=== PATIENT | female | born 1940 | race Caucasian/White ===

== ENCOUNTER 2017-01-21 14:31 | Emergency (ER) | payer MEDICARE, OTHER ==
[2017-01-21 16:17] VITALS: BP 136/77
--- NOTE | 2017-01-21 16:26 | UC ---
Hand/Wrist HPI - HPI Summary HPI Summary: patient fell a few days aog, has significant swelling and bruising in the hadn, mild pain in some fingers and in the palm of the hand, large bruising up the forearm - History Of Current Complaint Chief Complaint: UCGeneralIllness Stated Complaint: FELL-LT ARM INJURY Time Seen by Provider: 01/21/17 16:20 Hx Obtained From: Patient ?: No Onset/Duration: Sudden Onset, Lasting Days Severity Initially: Severe Severity Currently: Moderate Character Of Pain: Aching, Stiffness Aggravating Factor(s): Movement Alleviating: Nothing Associated Signs And Symptoms: Positive: Negative - Allergies/Home Medications Allergies/Adverse Reactions: Allergies Allergy/AdvReac Type Severity Reaction Status Date / Time No Known Allergies Allergy Verified 01/21/17 16:04 Home Medications: Home Medications B-Complex Vitamins [Vitamin B Complex] 1 tab PO 01/21/17 [History Confirmed 10/09] Cholecalciferol [Vitamin D] 1,000 unit PO 01/21/17 [History Confirmed 01/21/17] PMH/Surg Hx/FS Hx/Imm Hx Previously Healthy: Yes - Surgical History Surgical History: Yes Surgery Procedure, Year, and Place: 6 surguries to bilateral hips, including bilateral replacments - Family History Known Family History: Positive: Hypertension - Social History Alcohol Use: Daily Alcohol Amount: 1-2 glasses wine Substance Use Type: None Smoking Status (MU): Former Smoker - Immunization History Most Recent Tetanus Shot: Pt states up to date Review of Systems Constitutional: Negative Skin: Bruising Eyes: Negative ENT: Negative Respiratory: Negative Cardiovascular: Negative Gastrointestinal: Negative Genitourinary: Negative Motor: Negative Neurovascular: Negative Musculoskeletal: Decreased ROM, Edema, Myalgia Neurological: Negative Psychological: Negative All Other Systems Reviewed And Are Negative: Yes Physical Exam Triage Information Reviewed: Yes Appearance: Well-Appearing, Well-Nourished, Pain Distress Vital Signs: Initial Vital Signs Temp 98.1 F 01/21/17 16:05 Pulse 79 01/21/17 16:05 Resp 18 01/21/17 16:05 BP 136/77 01/21/17 16:05 Pulse Ox 100 01/21/17 16:05 Vital Signs Reviewed: Yes Eye Exam: Normal Eyes: Positive: Conjunctiva Clear ENT Exam: Normal ENT: Positive: Hearing grossly normal, Pharynx normal, TMs normal Dental Exam: Normal Neck exam: Normal Neck: Positive: Supple, Nontender, No Lymphadenopathy Respiratory Exam: Normal Respiratory: Positive: Chest non-tender, Lungs clear, Normal breath sounds Cardiovascular Exam: Normal Cardiovascular: Positive: RRR, No Murmur, Pulses Normal Abdominal Exam: Normal Abdomen Description: Positive: Nontender, No Organomegaly, Soft Bowel Sounds: Positive: Present Musculoskeletal: Positive: ROM Limited @ - in finger flexion, Edema @ - fingers to elbow in left hand Neurological Exam: Normal Neurological: Positive: Alert, Muscle Tone Normal Psychological Exam: Normal Skin: Positive: Other - brusing from fingers to mid forearm Hand/Wrist Course/Dx - Course Course Of Treatment: hx obtained, exam performed, meds reviewed, xray obtained negative for fracture cecelia and cock up splint applied. - Differential Dx/Diagnosis Differential Diagnosis/HQI/PQRI: Cellulitis, Contusion, Fracture, Infection, Sprain, Strain Provider Diagnoses: finger sprain. forearm strain of extensor tendons Discharge - Discharge Plan Condition: Stable Disposition: HOME Patient Education Materials: Wrist Injury (ED) Additional Instructions: 1. keep the arm elevated at rest, use the cecelia for swelling reductionand splint for comfort.
--- NOTE | 2017-01-21 16:55 | RAD ---
HISTORY: Subacute trauma, left arm injury COMPARISONS: None VIEWS: 4, Frontal, lateral, and oblique views of the left hand FINDINGS: BONE DENSITY: Normal. BONES: There is no displaced fracture. JOINTS: There is moderate to advanced osteoarthritis of the first CMC joint. There is osteoarthritis of the second and third DIP joints ALIGNMENT: There is no dislocation. SOFT TISSUES: Unremarkable. OTHER FINDINGS: None. IMPRESSION: OSTEOARTHRITIS. NO ACUTE OSSEOUS INJURY. IF SYMPTOMS PERSIST, RECOMMEND REPEAT IMAGING.
== END 2017-01-21 17:14 | disposition home or self-care (01) ==
LOC: UCEAST 14:31
DX: S63.619A Unspecified sprain of unspecified finger, initial encounter (principal); S56.512A Strain of other extensor muscle, fascia and tendon at forearm level, left arm, initial encounter; W18.30XA Fall on same level, unspecified, initial encounter; Z96.643 Presence of artificial hip joint, bilateral; Z87.891 Personal history of nicotine dependence
CPT/HCPCS: 99213; G0463

== ENCOUNTER 2018-01-08 15:53 | Inpatient (IN) | payer MEDICARE, OTHER ==
[2018-01-08 17:26] LABS: ABS Basophils 0 10^3/ul (0-0.2); ABS Eosinophils 0 10^3/ul (0-0.6); ABS Lymphocytes 1.2 10^3/ul (1.0-4.8); ABS Monocytes 0.1 10^3/ul (0-0.8); ABS Neutrophils 3.1 10^3/ul (1.5-7.7); ABS Nucleated RBC 0 10^3/ul; Eosinophil % 0.4 % (0-6); Hematocrit 49 % (35-47); Lymphocyte % 27.1 % (25-47); Mean Corpuscular HGB Conc 33 g/dl (31-36); Mean Corpuscular Hemoglobin 27 pg (27-31); Mean Corpuscular Volume 83 fL (80-97); Mean Platelet Volume 7.7 um3 (7.4-10.4); Nucleated Red Blood Cells % 0.1; Platelet Count 335 10^3/ul (150-450); Red Cell Distribution Width 18 % (10.5-15); White Blood Count 4.4 10^3/ul (3.5-10.8)
[2018-01-08] MEDS ORDERED: Ondansetron INJ* 2 MG/ML VIAL IV ONE (17:30)
[2018-01-08] MEDS ORDERED: HYDROmorphone INJ* 1 MG/ML CARPUJECT SYRINGE IV ONE (17:30)
[2018-01-08] MEDS ORDERED: HYDROmorphone INJ* 2 MG/ML CARPUJECT SYRINGE ONE (17:41)
[2018-01-08 17:46] LABS: EGFR Non-African American 54.7 (>60)
[2018-01-08] MEDS ORDERED: HYDROmorphone INJ* 2 MG/ML CARPUJECT SYRINGE IV SLOW PU ONE ×2 (17:47→20:38)
[2018-01-08] MEDS ORDERED: Iodixanol* (CONTRAST) 320 MG/ML 100 ML SDV IV ONE (18:38)
--- NOTE | 2018-01-08 18:53 | RAD ---
INDICATION: Abdominal pain. COMPARISON: There are no prior studies available for comparison. TECHNIQUE: A CT scan of the abdomen and pelvis was performed with intravenous and oral contrast following intravenous injection of 85 ml of Visipaque 312 nonionic contrast. Contiguous axial sections were obtained from the lung bases through the symphysis pubis. Images were reconstructed in the coronal and sagittal planes. FINDINGS: There is mild dependent bilateral lower lobe subsegmental atelectasis. No pleural effusion is present. The liver and spleen are normal in size. There is a small hypodense area in the posterior segment of the right hepatic lobe measuring 0.6 cm in size which is too small to characterize by CT. No calcified gallstones are seen. The pancreas appears to be within normal limits. The kidneys and adrenal glands are normal in size. No hydronephrosis is seen. No significant focal renal abnormality is seen. The abdominal aorta is tortuous and ectatic. No aneurysm is seen. There is mild calcific plaque. No significant enlarged retroperitoneal lymph nodes are seen. The stomach is mildly distended with fluid. The small bowel colon appear nondistended. The appendix is within normal limits. There is mild to moderate descending and sigmoid diverticulosis. A portion of the sigmoid colon is obscured secondary to artifact from bilateral hip replacement surgery. There is a small to moderate amount of free intraperitoneal air present in the upper anterior abdomen. A definite source is not evident. There is a small amount of ascites present within the paracolic gutters and pelvis and adjacent to the liver and spleen. The patient is status post total bilateral hip placement surgery which causes artifact limiting evaluation of the pelvis. No other significant focal osseous abnormalities are seen. The results of this exam were called to referring clinician. IMPRESSION: 1. THERE IS FREE INTRAPERITONEAL AIR CONSISTENT WITH A RUPTURED VISCUS, RECOMMEND SURGICAL CONSULTATION. 2. SMALL AMOUNT OF FREE INTRAPERITONEAL FLUID.
[2018-01-08] MEDS ORDERED: Piperacillin/Tazobac ADVAN(*) 3.375 GM in NS 0.9% 100 ML* 100 ML IVPB ONE (19:08)
--- NOTE | 2018-01-08 19:34 | ED ---
Herman Arguello Natalie, scribed for Jamal Recio MD on 01/08/18 at 1716 . Abdominal Pain/Female - HPI Summary HPI Summary: The pt is a 77 y/o F presenting to the the ED c/o low abd pain starting at 14: 30. The pt was out laura[p[ing when she had a strawberry and banana smoothie about two hours before the severe pain started in her low abd. The pain is described as switching between excrutiating and dull epsiodes. The pain is rated 10/10 in severity. The pain is aggravated by nothing and alleviated by nothing. 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 She additionally c/o nausea and vomiting. She has not had any abd surgeries in the past. - History of Current Complaint Chief Complaint: EDAbdPain Stated Complaint: ABD PAIN Time Seen by Provider: 01/08/18 16:44 Hx Obtained From: Patient Onset/Duration: Sudden Onset, Lasting Hours, Still Present Severity Initially: Severe Severity Currently: Severe Pain Intensity: 10 Pain Scale Used: 0-10 Numeric Location: Suprapubic Radiates: No Character: Sharp, Dull Aggravating Factor(s): Nothing Alleviating Factor(s): Nothing Associated Signs and Symptoms: Positive: Nausea, Vomiting Allergies/Adverse Reactions: Allergies Allergy/AdvReac Type Severity Reaction Status Date / Time midazolam [From Versed] Allergy Difficulty Verified 01/08/18 16:46 Breathing Home Medications: Home Medications Glucosamine CAP (NF) 1,000 cap PO DAILY 01/08/18 [History Confirmed 01/08/18] Metoprolol Tartrate TAB* [Lopressor TAB*] 25 mg PO BID 01/08/18 [History Confirmed 01/08/18] Vitamin B Complex TAB* [B Complex-50*] 1 tab PO DAILY 01/08/18 [History Confirmed 01/08/18] amLODIPine TAB* [Norvasc 5 mg TAB*] 5 mg PO DAILY 01/08/18 [History Confirmed ] PMH/Surg Hx/FS Hx/Imm Hx Opthamlomology History: Denies: Hx Legally Blind EENT History: Denies: Hx Deafness - Surgical History Surgery Procedure, Year, and Place: 6 surguries to bilateral hips, including bilateral replacments - Immunization History Date of Tetanus Vaccine: t Infectious Disease History: No Infectious Disease History: Reports: Hx Tuberculosis Denies: Traveled Outside the [place] in Last 30 Days - Family History Known Family History: Positive: Cardiac Disease, Hypertension, Diabetes - type II in father - Social History Alcohol Use: Daily Alcohol Amount: 1-2 glasses wine Substance Use Type: Reports: None Smoking Status (MU): Former Smoker Review of Systems Negative: Fever Positive: Abdominal Pain, Vomiting, Nausea All Other Systems Reviewed And Are Negative: Yes Physical Exam - Summary Physical Exam Summary: Appearance: The patient is well-nourished in no acute distress and in no acute pain. Skin: The skin is warm and dry and skin color reflects adequate perfusion. HEENT: The head is normocephalic and atraumatic. The pupils are equal and reactive. The conjunctivae are clear and without drainage. Nares are patent and without drainage. Mouth reveals moist mucous membranes and the throat is without erythema and exudate. The external ears are intact. The ear canals are patent and without drainage. The tympanic membranes are intact. Neck: the neck is supple with full range of motion and non-tender. There are no carotid bruits. There is no neck vein distension. Respiratory: Chest is non-tender. Lungs are clear to auscultation and breath sounds are symmetrical and equal. Cardiovascular: Heart is regular rate and rhythm. There is no murmur or rub auscultated. There is no peripheral edema and pulses are symmetrical and equal. Abdomen: The abdomen is diffusely tender with voluntary guarding. There are normal bowel sounds heard in all four quadrants and there is no organomegaly palpated. Musculoskeletal: There is no back tenderness noted. Extremities are non-tender with full range of motion. There is good capillary refill. There is no peripheral edema or calf tenderness elicited. Neurological: Patient is alert and oriented to person, place and time. The patient has symmetrical motor strength in all four extremities. Cranial nerves are grossly intact. Deep tendon reflexes are symmetrical and equal in all four extremities. Psychiatric: The patient has an appropriate affect and does not exhibit any anxiety or depression. Triage Information Reviewed: Yes Vital Signs On Initial Exam: Initial Vitals Temp Pulse Resp BP Pulse Ox 95.7 F 76 20 143/84 99 01/08/18 15:54 01/08/18 15:54 01/08/18 15:54 01/08/18 15:54 01/08/18 15:54 Vital Signs Reviewed: Yes Diagnostics - Vital Signs Vital Signs Temp Pulse Resp BP Pulse Ox 01/08/18 16:41 73 21 100 01/08/18 15:54 95.7 F 76 20 143/84 99 - Laboratory Lab Results: Lab Results 01/08/18 01/08/18 01/08/18 Range/Units 17:12 17:12 17:12 WBC 4.4 (3.5-10.8) 10^3/ul RBC 5.90 H (4.0-5.4) 10^6/ul Hgb 16.0 (12.0-16.0) g/dl Hct 49 H (35-47) % MCV 83 (80-97) fL MCH 27 (27-31) pg MCHC 33 (31-36) g/dl RDW 18 H (10.5-15) % Plt Count 335 (150-450) 10^3/ul MPV 7.7 (7.4-10.4) um3 Neut % (Auto) 70.7 (38-83) % Lymph % (Auto) 27.1 (25-47) % [place]quois % (Auto) 1.4 (0-7) % Eos % (Auto) 0.4 (0-6) % Baso % (Auto) 0.4 (0-2) % Absolute Neuts (auto) 3.1 (1.5-7.7) 10^3/ul Absolute Lymphs (auto) 1.2 (1.0-4.8) 10^3/ul Absolute Monos (auto) 0.1 (0-0.8) 10^3/ul Absolute Eos (auto) 0 (0-0.6) 10^3/ul Absolute Basos (auto) 0 (0-0.2) 10^3/ul Absolute Nucleated RBC 0 10^3/ul Nucleated RBC % 0.1 Sodium 137 L (139-145) mmol/L Potassium 3.4 L (3.5-5.0) mmol/L Chloride 100 L (101-111) mmol/L Carbon Dioxide 22 (22-32) mmol/L Anion Gap 15 H (2-11) mmol/L BUN 17 (6-24) mg/dL Creatinine 0.99 H (0.51-0.95) mg/dL Est GFR ( Amer) 70.3 (>60) Est GFR (Non-Af Amer) 54.7 (>60) BUN/Creatinine Ratio 17.2 (8-20) Glucose 216 H (70-100) mg/dL Lactic Acid 3.9 H* (0.5-2.0) mmol/L Calcium 9.5 (8.6-10.3) mg/dL Total Bilirubin 0.50 (0.2-1.0) mg/dL AST 19 (13-39) U/L ALT 18 (7-52) U/L Alkaline Phosphatase 62 (34-104) U/L C-Reactive Protein < 1.00 (< 5.00) mg/L Total Protein 6.7 (6.4-8.9) g/dL Albumin 3.9 (3.2-5.2) g/dL Globulin 2.8 (2-4) g/dL Albumin/Globulin Ratio 1.4 (1-3) Lipase 15 (11.0-82.0) U/L Result Diagrams: 01/08/18 17:12 01/08/18 17:12 Lab Statement: Any lab studies that have been ordered have been reviewed, and results considered in the medical decision making process. - CT Abd/Pel CT CT Interpretation: Positive (See Comments) - 1. There is free intraperitoneal air consistent with a ruptured viscus, recommend surgical consultation. 2. Small amount of free intraperitoneal fluid. ED physician has reviewed this report. CT Interpretation Completed By: Radiologist Abdominal Pain Fem Course/Dx - Course Course Of Treatment: Ms. Cottrell had the sudden onset of low abdominal pain which gradually spread throughout her abdomen. She vomited once but is not nauseated now. She takes ibuprofen occasionally but not regularly. She was voluntarily guarding on presentation. She had no fever and her WBCs were WNL. A CT Abd/Pelvis was obtained with IV contrast and showed free intraperitoneal air. Dr. Grant was contacted and is coming to see the patient. She got a lot of relief with a shot of dilaudid and zofran. - Diagnoses Provider Diagnoses: Free intraperitoneal air - Critical Care Time Critical Care Time: 30-74 min Discharge - Sign-Out/Discharge Documenting (check all that apply): Discharge - Discharge Plan Condition: Stable Disposition: ADMITTED TO [facility] Referrals: Adi MICHAEL,Clover Pérez [Primary Care Provider] - - Billing Disposition and Condition Condition: STABLE [place] [facility] [place] The documentation as recorded by the Herman quintana Natalie accurately reflects the service I personally performed and the decisions made by me, Jamal Recio MD.
[2018-01-08] MEDS ORDERED: NS 0.9% 1000 ML* 1,000 ML IV ONE (20:29)
[2018-01-08 20:47] LABS: INR 0.93 (0.77-1.02)
[2018-01-08] MEDS ORDERED: Bupivacaine 0.25% SDV* 30 ML ONE (22:45)
[2018-01-08] MEDS ORDERED: fentaNYL* 50 MCG/ML 2 ML VIAL (100 MCG VIAL) ONE ×2 (22:52→23:38)
[2018-01-08] MEDS ORDERED: Rocuronium* 10 MG/ML VIAL ONE (23:35)
[2018-01-09] MEDS ORDERED: EPHEDrine (Pressors)* 50 MG/ML VIAL ONE (00:15)
[2018-01-09] MEDS ORDERED: Phenylephrine IV* 40 MCG/ML 10 ML SYRINGE ONE (00:15)
[2018-01-09] MEDS ORDERED: Propofol* 10 MG/ML 20 ML BTL IV PUSH ONE (00:15)
[2018-01-09] MEDS ORDERED: Dexamethasone IV* 4 MG/ML 1 ML (4 MG) ONE (00:15)
[2018-01-09] MEDS ORDERED: Ondansetron INJ* 2 MG/ML VIAL ONE (00:15)
[2018-01-09] MEDS ORDERED: Cisatracurium* 2 MG/ML MDV 5 ML ONE (00:15)
[2018-01-09] MEDS ORDERED: Succinylcholine* 20 MG/ML 10 ML VIAL ONE (00:15)
[2018-01-09] MEDS ORDERED: Etomidate* 2 MG/ML 10 ML VIAL ONE (00:15)
[2018-01-09] MEDS ORDERED: Lidocaine 2% PF * 5 ML VIAL ONE (00:15)
[2018-01-09] MEDS ORDERED: metroNIDAZOLE IV 500 MG/100ML* 500 MG/100 ML BAG IVPB ONE (01:23)
--- NOTE | 2018-01-09 01:44 | HP ---
CC: Dr. Clover Joshi at [facility] HISTORY AND PHYSICAL: DATE OF ADMISSION: The patient is seen in the emergency room on 01/08/18. CHIEF COMPLAINT/HISTORY OF PRESENT ILLNESS: I was contacted by the emergency room to evaluate Ms. Js Cottrell a 77-year-old female, who presented to the emergency room with acute onset of diffuse abdominal pain. The patient's workup in the emergency room including labs and CT scan was suggested of perforated viscus and my service was contacted. The patient describes acute onset while shopping at approximately 2:30, was mostly in the periumbilic al and lower abdomen, it was severe, no alleviating factors. The patient . She presented to [facility] emergency room with her . The patient had accompanying nausea and vomiting, decreased appetite. No bloating. Last bowel moveme nt this morning. She is started describing obstipated. Denies any fevers or chills. The pain has b een unrelenting with no real alleviation with narcotics. She does describe being in good health leading up to the onset of symptoms today. She has had colonos copy in the past. Denies history of diverticulosis or diverticulitis. No IBD. The patient has been recently using ibuprofen for back pain, but she will have usually about 400 mg daily. PAST MEDICAL HISTORY: Aortic stenosis, status post treatment recently. The patient is currently on cardiac rehab for this. She also received valvular replacement. She otherwise doing well. She does have hypertension. PAST SURGICAL HISTORY: As described above. Chest surgery as well as bilateral hip surgery. She den ies any abdominal surgeries. MEDICATIONS: Include: 1. Norvasc. 2. Metoprolol. 3. Glucosamine. 4. Fluoxetine. ALLERGIES: She has allergy to MIDAZOLAM. SOCIAL HISTORY: Nonsmoker. Lives with her . She is retired. Did recently travel to [place], getting back 3 days ago. ADDITIONAL REVIEW OF SYSTEMS: No headache. No shortness of breath or chest pain. Abdominal complain ts as described. No dysuria, but positive back pain. No bleeding or clotting disorders. She is not on anticoagulation. PHYSICAL EXAMINATION GENERAL: Alert and oriented x3, in mild distress. VITAL SIGNS: She is afebrile, heart rate in the 80s, blood pressure 123/74, O2 sat 94%. HEAD, EARS, EYES, NOSE AND THROAT: Normocephalic and atraumatic. Sclerae anicteric. Mucous membran es are dry. NECK: No lymphadenopathy. LUNGS: Clear to auscultation at the apices. ABDOMEN: Tender. Positive voluntary guarding. Tenderness to percussion, but without rebound tender ness. This is diffuse with no discrete areas of worse response. RECTAL: Not performed. EXTREMITIES: Within normal limits. No calf tenderness. DIAGNOSTIC STUDIES/LAB DATA: The patient underwent labs, which showed white count of 4.4, reference range is 3.5 to 10.8. Metabolic panel shows low potassium of 3.4, lactic acid of 3.9. CRP is claudia l as her LFTs and lipase. Creatinine of 1. We do not have any baseline for patient. Coags within no rmal limits. CT scan performed. These images as well as the report were reviewed. It does show intraperitoneal a ir consistent with a ruptured viscus. There was free fluid above the liver and the spleen. There is no obvious diverticular disease. Bladder appeared normal. This is a non p.o. contrast study, but d id have IV contrast. IMPRESSION: Acute abdomen with concern of possible perforated ulcer given the patient's findings are similar to a chemical peritonitis of sorts along with this acute onset of symptoms. I do believe yudy medeiros would benefit from trip to the operating room and I have recommended diagnostic laparoscopy, po ssible laparotomy. We outlined differential diagnosis, which includes perforated peptic ulcer, descri bed the possibility of this being an anterior versus posterior ulceration. The differential diagnosis includes perforated small bowel or large bowel, possibility of diverticulitis, briefly talked about possibility of cancer. They agreed to go forward. We had a long discussion. I spoke also with her daughter who is a physician due to consider the possibility of transferring to [place] where they be closer to her regular doctors or at least place where she is more familiar with, but after our long d iscussion, they forewent that and decided on operation here. I discussed the risks, benefits, and alternatives. We spoke with possibility of watchful waiting ove r the course of the next few hours with idea of going to the operating room should she worsen. My in clination is that this is perforated ulcer that will worse with time causing more pain and does mariah nt an evaluation in the OR to better delineate this and diagnosed why patient has intraperitoneal air . Consent was signed by her . The patient was present during this discussion and understands these possibilities. The additional complications and possibilities include bleeding, infection, exp loratory laparotomy, partial colectomy and colostomy, the possibility of feeding tube and prolonged h ospitalization, stroke, MD and even . The patient has already received a dose of antibiotics in the emergency room. We will not give other dose at this point and patient is receiving IV fluids. PLAN: Diagnostic laparoscopy, possible laparotomy. [id number]/[facility] #: [id number]
[2018-01-09] MEDS ORDERED: Metoprolol Tartrate IV* 1 MG/ML 5 ML VIAL ONE (02:25)
[2018-01-09] MEDS ORDERED: ZOSYN 3.375 GM x ONE DOSE over 30 miuntes IVPB ×2 (04:00)
[2018-01-09] MEDS ORDERED: Metoclopramide IV* 5 MG/ML 2 ML VIAL IV PRN (05:36)
[2018-01-09] MEDS ORDERED: Morphine PCA ADULT* 5 MG/ML 30 ML PCA SCH (06:00)
[2018-01-09] MEDS ORDERED: fentaNYL* 50 MCG/ML 2 ML VIAL (100 MCG VIAL) IV SLOW PU PRN (06:44)
[2018-01-09] MEDS ORDERED: fentaNYL* 50 MCG/ML 2 ML VIAL (100 MCG VIAL) ONE (06:45)
--- NOTE | 2018-01-09 06:45 | PN ---
Progress Note - Progress Note Date of Service: 01/09/18 Note: Patient concerned about having adverse reaction to morphine. Will start fentanyl prn
[2018-01-09] MEDS: Heparin VIAL(*) 5000 UNITS/ML VIAL (FIVE THOUSAND) SUBCUT SCH ×3 (06:48→22:22)
[2018-01-09 07:41] LABS: Urine Appearance Clear; Urine Blood 2+ (Negative); Urine Color Yellow; Urine Ketones Negative (Negative); Urine Protein Negative (Negative); Urine Specific Gravity 1.032 (1.010-1.030); Urine Urobilinogen Negative (Negative)
[2018-01-09] MEDS ORDERED: Metoprolol Tartrate IV* 1 MG/ML 5 ML VIAL IV SCH (08:00)
[2018-01-09] MEDS: Piperacillin/Tazobactam 13.5 GM IV 24 hour continuous infusion IVPB SCH ×2 (08:07)
--- NOTE | 2018-01-09 08:09 | RAD ---
INDICATION: Free intraperitoneal air COMPARISON: CT of the abdomen and pelvis January 08, 2018 TECHNIQUE: Single AP portable view of the chest was obtained. FINDINGS: Image quality is compromised due to the relative inferiority of a portable chest x-ray. Postsurgical changes include sternotomy wires and a prosthetic aortic valve. There is a gastric tube with the tip terminating overlying the gastric antrum. The heart and mediastinum exhibit normal size and contour. There is density obscuring the left hemidiaphragm and causing left-sided costophrenic angle blunting. Visualized bones are normal for the patient's age. IMPRESSION: Density of securing the left hemidiaphragm and causing left costophrenic angle blunting could be pleural effusion and/or consolidation at the left lung base.
[2018-01-09] MEDS: metroNIDAZOLE IV 500 MG/100ML* 500 MG/100 ML BAG IVPB SCH ×2 (08:13→19:21)
[2018-01-09 08:17] LABS: ABS Basophils 0 10^3/ul (0-0.2); ABS Eosinophils 0 10^3/ul (0-0.6); ABS Lymphocytes 0.4 10^3/ul (1.0-4.8); ABS Monocytes 0.3 10^3/ul (0-0.8); ABS Neutrophils 3.9 10^3/ul (1.5-7.7); ABS Nucleated RBC 0 10^3/ul; Eosinophil % 0.1 % (0-6); Hematocrit 45 % (35-47); Hemoglobin 14.9 g/dl (12.0-16.0); Lymphocyte % 8.8 % (25-47); Mean Corpuscular HGB Conc 33 g/dl (31-36); Mean Corpuscular Hemoglobin 28 pg (27-31); Mean Corpuscular Volume 84 fL (80-97); Mean Platelet Volume 8.6 um3 (7.4-10.4); Nucleated Red Blood Cells % 0.1; Platelet Count 249 10^3/ul (150-450); Red Blood Count 5.42 10^6/ul (4.0-5.4); Red Cell Distribution Width 18 % (10.5-15); White Blood Count 4.6 10^3/ul (3.5-10.8)
[2018-01-09] MEDS ORDERED: HYDROmorphone PCA* 20 MG/20 ML PCA.SYRING PCA SCH (09:30)
[2018-01-09] MEDS ORDERED: Naloxone* 0.4 MG/ML 1 ML VIAL IV PUSH PRN (09:30)
[2018-01-09] MEDS ORDERED: NS 0.9% 1000 ML* 1,000 ML IVPB SCH (09:30)
[2018-01-09] MEDS ORDERED: HYDROmorphone PCA* 20 MG/20 ML PCA.SYRING ONE (09:46)
[2018-01-09] MEDS: NS 0.9% 1000 ML* 1,000 ML IV SCH ×3 (10:04→20:03)
[2018-01-09] MEDS ORDERED: Magnesium Sulfate 2 GM IV* 2 GM/50 ML BAG IVPB ONE (11:43)
[2018-01-09] MEDS ORDERED: Metoprolol Tartrate IV* 1 MG/ML 5 ML VIAL IV PRN (11:49)
--- NOTE | 2018-01-09 13:27 | PN ---
Progress Note - Progress Note Date of Service: 01/09/18 SOAP: Subjective: Pt seen and examined. OOB to chair. thirsty , no nausea Objective: af tachy, normotensive. O2 sat 99 on face mask UO good NT minimal thick lungs clear abdo: soft/ distented, tender ostomy intact, no gas dressing intact labs noted Assessment: POD0 Jose Roberto's Plan: bolus cont NGT, paz fopr now Labs in am pain control ICU for 1 more night
[2018-01-09] MEDS ORDERED: Magnesium Sulfate 1 GM IV* 1 GM/100 ML BAG IV ONE (13:29)
[2018-01-09] MEDS ORDERED: NS 0.9% 1000 ML* 1,000 ML IV ONE (13:30)
--- NOTE | 2018-01-09 15:15 | CONS ---
CONSULTATION REPORT: [facility] DATE OF CONSULT: 01/09/2018 ATTENDING PHYSICIAN: Jesus Grant MD HISTORY OF PRESENT ILLNESS: This is a very pleasant 77-year-old female patient who presented to the emergency department last night for evaluation of acute diffuse abdominal pain, sharp in nature. Patient stated the pain was increasing and she also had some nausea with vomiting and persistent anorexia. The patient stated she did have a bowel movement in the morning which was reported as normal. However, upon evaluation in the emergency department, a CAT scan was performed, this was evaluated by Dr. Grant. CAT scan results show intraperitoneal air consistent with a ruptured viscus. There was free fluid in the abdomen above the liver and the spleen. There was no obvious diverticular disease, bladder appeared normal. Of significant note, the CT scan was performed with IV contrast only and no p.o. contrast. Dr. Grant determined it was necessary to take the patient to the OR. She was presenting with an acute abdomen. She was going for diagnostic laparoscopy with possible laparotomy. The patient was seen in the ICU status post her procedure. Her was at the bedside. She is lying in bed with simple oxygen mask on. PAST MEDICAL HISTORY: Significant for aortic stenosis status post valve replacement, hypertension and depression. PAST SURGICAL HISTORY: Significant for aortic valve replacement in 08/29/17. MEDICATIONS: At home include: 1. Glucosamine 1000 mg one tablet daily. 2. Prozac 40 mg daily. 3. Amlodipine 5 mg daily. 4. Metoprolol tartrate 25 mg two times a day. 5. Vitamin B complex one tablet daily. ALLERGIES: She has allergy to MIDAZOLAM. I clarified this with her . He said it was not a rash or wheezing, when she had MIDAZOLAM, she was having closed reduction procedure done and patient had reduced respiratory status when she had two doses of MIDAZOLAM but no overt rash or itching. FAMILY HISTORY: Noncontributory. SOCIAL HISTORY: The patient denies smoking, denies alcohol use and denies any illicit drug use. She is retired and lives at home with her . PHYSICAL EXAM: She is alert but sometimes drowsy secondary to narcotic pain medication but in no obvious distress. She is well appearing. Vital Signs: Blood pressure 94/65, heart rate 90, respiratory rate 21, oxygen saturation is 96% to 97% on 6 L simple mask. HEENT: Patient is atraumatic normocephalic. She is PERRLA with nonicteric sclerae. Neck is supple, nontender. No JVD noted , no thyromegaly appreciated. No carotid bruits auscultated. Cardiovascular: S1, S2 are present. Rate and rhythm are regular. No murmurs, gallops or rubs noted. Abdomen is soft, moderately tender, diffuse across her abdomen. She has absent bowel sounds at this time. There is a colostomy bag that is draining a small amount of soft brown fecal matter. : She has a Raza catheter draining clear yellow urine. Musculoskeletal: There is no clubbing and no cyanosis. She has gross motor and sensation intact. She has +2 distal pulses palpable. No clubbing or edema noted. Neurologic: She is sleepy but appropriate with no focal deficits. Psychiatric: She is cooperative and appropriate. DIAGNOSTIC STUDIES/LAB DATA: WBC is 4.6, RBC is 5.42, hemoglobin 14.9, hematocrit 45, MCV 84, MCH 28, platelets 249. Sodium 136, potassium 4.3, chloride 107, CO2 is 21, BUN 16, creatinine 0.78, GFR 72.0. Glucose is 186, lactic acid is beginning to trend down, it was 3.9 on admission and is now 3.5 today, calcium 7.8, phosphorus 4.5, magnesium 1.4. Bilirubin 0.50, AST 19, ALT 18, alk phos 62. CRP is less than 1.00. Total protein is 6.7, albumin is 3.9, globulin 2.8 and lipase is 15. CAT scan as noted. IMPRESSION: This is a 77-year-old female patient with an acute abdomen status post laparotomy and colostomy. She is postop day #0. PLAN/RECOMMENDATIONS: The patient was admitted to surgical service. She is remaining in the ICU for closer management. 1. For her abdominal pain and recent surgery, plan of care will be as per the surgical service. She is currently on Dilaudid [employer]. She is n.p.o. until return of bowel function. She has a nasogastric tube to the right naris which is draining bilious material to intermittent suction that will also be maintained by surgery. 2. For her low magnesium, I have ordered 2 g of magnesium sulfate, we will recheck her labs and lytes in the morning. 3. For history of aortic stenosis with valve replacement, the patient is not on anticoagulation. Her EKG at admission was normal and patient has had no chest pain and does not appear to be fluid overloaded. She will remain on telemetry for the duration of her stay. 4. For her history of depression and PTSD, we will continue her fluoxetine caps when she is no longer n.p.o. 5. Also of note, she had some hyperglycemia postoperatively. She does not report any history of diabetes, this may be stress induced. At this point, we will keep an eye on it. I do not want to put her on insulin sliding scale while she is n.p.o. If sugars begin to creep up, we can put her on lispro sliding scale, but for now, we will just continue to monitor. The rest of the patient's course will be determined by further diagnostics, laboratories, and any other input from other providers as warranted during this admission. We thank you very kindly for the courtesy of this consult and we agree to follow the patient along with you. CECIL SANTANA, HAROON [id number]/CPS #: [id number] ALEXANDREA
[2018-01-10] MEDS: metroNIDAZOLE IV 500 MG/100ML* 500 MG/100 ML BAG IVPB SCH ×3 (03:27→17:57)
[2018-01-10 05:44] LABS: ABS Basophils 0 10^3/ul (0-0.2); ABS Eosinophils 0 10^3/ul (0-0.6); ABS Lymphocytes 0.6 10^3/ul (1.0-4.8); ABS Monocytes 0.3 10^3/ul (0-0.8); ABS Neutrophils 11.5 10^3/ul (1.5-7.7); ABS Nucleated RBC 0 10^3/ul; Eosinophil % 0 % (0-6); Hematocrit 40 % (35-47); Lymphocyte % 4.5 % (25-47); Mean Corpuscular HGB Conc 33 g/dl (31-36); Mean Corpuscular Hemoglobin 27 pg (27-31); Mean Corpuscular Volume 83 fL (80-97); Mean Platelet Volume 8.1 um3 (7.4-10.4); Nucleated Red Blood Cells % 0.1; Platelet Count 201 10^3/ul (150-450); Red Blood Count 4.77 10^6/ul (4.0-5.4); Red Cell Distribution Width 18 % (10.5-15); White Blood Count 12.4 10^3/ul (3.5-10.8)
[2018-01-10 06:02] LABS: EGFR Non-African American 74.2 (>60)
[2018-01-10] MEDS: Heparin VIAL(*) 5000 UNITS/ML VIAL (FIVE THOUSAND) SUBCUT SCH ×3 (06:33→22:43)
[2018-01-10] MEDS: Piperacillin/Tazobactam 13.5 GM IV 24 hour continuous infusion IVPB SCH ×2 (08:23)
[2018-01-10] MEDS: Pantoprazole IV* 40 MG IV SCH (08:25)
--- NOTE | 2018-01-10 08:40 | PN ---
Progress Note - Progress Note Date of Service: 01/10/18 SOAP: Subjective: Pt seen and examined. OOB to chair. Continued abdo pain NGT is bothersome Objective: af tachycardic UO good NT output reviewed abdo: soft/ distented, tender at lower abdo ostomy intact, no gas, pos. edema dressingremoved and midline wound probed labs noted Assessment: POD1 Jose Roberto's Plan: d/c NGT, paz Labs in am pain control NPO transfer to floor ostomy teaching
--- NOTE | 2018-01-10 10:40 | PN ---
Subjective Date of Service: 01/10/18 Interval History: Patient reports she is feeling better today. Denies any pain at rest but reports "tenderness" with movement. No noted gas/stool through colostomy. No fever or chills. No N/V. Denies SOB/CP. Objective Active Medications: Fentanyl Citrate (Fentanyl*) 50 mcg IV SLOW PU Q4H PRN PRN Reason: PAIN Last Admin: 01/09/18 06:48 Dose: 50 mcg Heparin Sodium (Porcine) (Heparin Vial(*)) 5,000 units SUBCUT Q8HR [facility] Last Admin: 01/10/18 06:33 Dose: 5,000 units Metronidazole/Sodium Chloride (Flagyl 500 Mg Ivpb*) 500 mg in 100 mls @ 100 mls /hr IVPB Q8H [facility] Last Admin: 01/10/18 10:30 Dose: 100 mls/hr Piperacillin Sod/Tazobactam (Sod 13.5 gm/ Sodium Chloride) 500 mls @ 20.833 mls /hr IVPB Q24H [facility] Last Admin: 01/10/18 08:23 Dose: 20.833 mls/hr Hydromorphone HCl (Dilaudid Acid Extractor*) 20 mg in 20 mls @ 0 mls/hr HEAD TENNIS PROFESSIONAL .Q24H [facility]; Per Protocol PRN Reason: Protocol Sodium Chloride (Ns 0.9% 1000 Ml*) 1,000 mls @ 0 mls/hr IVPB .Q24H [facility] PRN Reason: KVO Last Admin: 01/09/18 14:06 Dose: 15 mls/hr Metoclopramide HCl (Reglan Iv*) 10 mg IV Q6H PRN PRN Reason: NAUSEA Last Admin: 01/10/18 03:38 Dose: 10 mg Metoprolol Tartrate (Lopressor Iv*) 5 mg IV Q6H PRN PRN Reason: hypertension Naloxone HCl (Narcan*) 0.08 mg IV PUSH Q2M PRN PRN Reason: SEDATION Pantoprazole Sodium (Protonix Iv*) 40 mg IV DAILY [facility] Last Admin: 01/10/18 08:25 Dose: 40 mg Vital Signs - 8 hr 01/10/18 01/10/18 01/10/18 03:00 03:01 03:30 Temperature Pulse Rate 108 104 110 Respiratory 22 21 24 Rate Blood Pressure 130/79 155/82 (mmHg) O2 Sat by Pulse 97 98 96 Oximetry 01/10/18 01/10/18 01/10/18 04:00 04:30 05:00 Temperature 98.3 F Pulse Rate 98 106 106 Respiratory 20 20 23 Rate Blood Pressure 137/81 139/85 (mmHg) O2 Sat by Pulse 98 98 96 Oximetry 01/10/18 01/10/18 01/10/18 05:30 06:00 06:30 Temperature Pulse Rate 96 105 102 Respiratory 20 22 19 Rate Blood Pressure 130/81 142/82 130/81 (mmHg) O2 Sat by Pulse 98 98 98 Oximetry 01/10/18 01/10/18 01/10/18 07:00 07:30 08:00 Temperature 97.9 F Pulse Rate 102 106 103 Respiratory 21 20 20 Rate Blood Pressure 136/89 144/81 (mmHg) O2 Sat by Pulse 97 91 91 Oximetry 01/10/18 01/10/18 01/10/18 08:01 08:30 09:00 Temperature Pulse Rate 102 103 96 Respiratory 19 21 21 Rate Blood Pressure 122/81 130/82 116/65 (mmHg) O2 Sat by Pulse 91 92 93 Oximetry 01/10/18 01/10/18 01/10/18 09:30 10:00 10:01 Temperature Pulse Rate 103 103 102 Respiratory 21 25 17 Rate Blood Pressure 123/65 124/70 (mmHg) O2 Sat by Pulse 92 92 95 Oximetry Oxygen Devices in Use Now: None Appearance: well developed 77 yo female sitting up in a chair in NAD. A+O x3 Eyes: No Scleral Icterus, PERRLA Ears/Nose/Mouth/Throat: NL Teeth, Lips, Gums, Mucous Membranes Moist Neck: NL Appearance and Movements; NL JVP Respiratory: Symmetrical Chest Expansion and Respiratory Effort, Clear to Auscultation Cardiovascular: NL Sounds; No Murmurs; No JVD, RRR, No Edema Abdominal: - - No BS. Colostomy in LLQ, beefy red stoma - small amount of noted dark red drainage noted Extremities: No Edema, No Clubbing, Cyanosis Skin: No Rash or Ulcers, No Nodules or Sclerosis Neurological: Alert and Oriented x 3, NL Sensation, NL Muscle Strength and Tone Lines/Tubes/Other Access: Clean, Dry and Intact Peripheral IV Nutrition: Taking PO's Result Diagrams: 01/10/18 05:05 01/10/18 05:05 Additional Lab and Data: Lab Results 01/08/18 01/08/18 01/08/18 Range/Units 17:12 17:12 17:12 WBC 4.4 (3.5-10.8) 10^3/ul RBC 5.90 H (4.0-5.4) 10^6/ul Hgb 16.0 (12.0-16.0) g/dl Hct 49 H (35-47) % MCV 83 (80-97) fL MCH 27 (27-31) pg MCHC 33 (31-36) g/dl RDW 18 H (10.5-15) % Plt Count 335 (150-450) 10^3/ul MPV 7.7 (7.4-10.4) um3 Neut % (Auto) 70.7 (38-83) % Lymph % (Auto) 27.1 (25-47) % [place] % (Auto) 1.4 (0-7) % Eos % (Auto) 0.4 (0-6) % Baso % (Auto) 0.4 (0-2) % Absolute Neuts (auto) 3.1 (1.5-7.7) 10^3/ul Absolute Lymphs (auto) 1.2 (1.0-4.8) 10^3/ul Absolute Monos (auto) 0.1 (0-0.8) 10^3/ul Absolute Eos (auto) 0 (0-0.6) 10^3/ul Absolute Basos (auto) 0 (0-0.2) 10^3/ul Absolute Nucleated RBC 0 10^3/ul Nucleated RBC % 0.1 Sodium 137 L (139-145) mmol/L Potassium 3.4 L (3.5-5.0) mmol/L Chloride 100 L (101-111) mmol/L Carbon Dioxide 22 (22-32) mmol/L Anion Gap 15 H (2-11) mmol/L BUN 17 (6-24) mg/dL Creatinine 0.99 H (0.51-0.95) mg/dL Est GFR ( Amer) 70.3 (>60) Est GFR (Non-Af Amer) 54.7 (>60) BUN/Creatinine Ratio 17.2 (8-20) Glucose 216 H (70-100) mg/dL Lactic Acid 3.9 H* (0.5-2.0) mmol/L Calcium 9.5 (8.6-10.3) mg/dL Total Bilirubin 0.50 (0.2-1.0) mg/dL AST 19 (13-39) U/L ALT 18 (7-52) U/L Alkaline Phosphatase 62 (34-104) U/L C-Reactive Protein < 1.00 (< 5.00) mg/L Total Protein 6.7 (6.4-8.9) g/dL Albumin 3.9 (3.2-5.2) g/dL Globulin 2.8 (2-4) g/dL Albumin/Globulin Ratio 1.4 (1-3) Lipase 15 (11.0-82.0) U/L Microbiology and Other Data: Microbiology 01/09/18 06:49 Urine Culture - Final Urine No Growth (<1,000 CFU/mL) 01/09/18 06:49 Nasal Screen MRSA (PCR)([facility]) - Final Nasal Mrsa Not Detected Assess/Plan/Problems-Billing Assessment: 77 yo female with PMH of aortic stenosis s/p valve replacement, hypertension and depression who presented to the emergency department on 01/08 with c/o abdominal pain and was to have an acute abdomen with a bowel perforation requiring emergent OR which resulted in a colostomy. - Patient Problems (1) Sepsis Comment: - secondary to bowel perf. - new leukocytosis today (mild), no fevers, continues to be mildly tachycardiac. Elevated lactic acid yesterday - in the setting of post-op surgery - plan to recheck lactic now, send blood cx (was not done on admission d /t emergent nature of presentation). Continue IVFs, antibiotics. She is stable and improving at this time. (2) Status post Jose Roberto procedure Comment: - POD 1 - doing well - LLQ colostomy - teaching per nursing staff - Managed by the Surgical Team - GOLDY and jackson RODRIGUEZ today - Continue Zosyn/Flagyl - Pain management with HEAD TENNIS PROFESSIONAL (3) Aortic stenosis Comment: - s/p valve repair in August, not on anticoagulation (4) Electrolyte abnormality Comment: - Resolved with replacement. Continue to monitor. (5) Hypertension Comment: - Hold norvasc and Metoprolol until able to take PO. - Blood pressure wnls. continue to monitor. (6) Depression Comment: - hx of PTSD/Depression - stable - continue Prozac once taking PO (7) DVT prophylaxis Comment: HSQ (8) Full code status Status and Disposition: inpatient. Dispo per surgery. [facility]
[2018-01-10] MEDS ORDERED: NS 0.9% 1000 ML* 1,000 ML IV SCH (15:00)
[2018-01-11] MEDS: metroNIDAZOLE IV 500 MG/100ML* 500 MG/100 ML BAG IVPB SCH ×3 (01:37→18:13)
[2018-01-11 05:29] LABS: ABS Basophils 0 10^3/ul (0-0.2); ABS Eosinophils 0 10^3/ul (0-0.6); ABS Lymphocytes 1.1 10^3/ul (1.0-4.8); ABS Monocytes 0.3 10^3/ul (0-0.8); ABS Neutrophils 11.9 10^3/ul (1.5-7.7); ABS Nucleated RBC 0 10^3/ul; Eosinophil % 0.1 % (0-6); Hematocrit 33 % (35-47); Mean Corpuscular HGB Conc 33 g/dl (31-36); Mean Corpuscular Hemoglobin 27 pg (27-31); Mean Corpuscular Volume 82 fL (80-97); Mean Platelet Volume 8.3 um3 (7.4-10.4); Nucleated Red Blood Cells % 0; Platelet Count 188 10^3/ul (150-450); Red Blood Count 4.08 10^6/ul (4.0-5.4); Red Cell Distribution Width 18 % (10.5-15); White Blood Count 13.2 10^3/ul (3.5-10.8)
[2018-01-11 05:44] LABS: EGFR Non-African American 97.5 (>60)
[2018-01-11] MEDS: Heparin VIAL(*) 5000 UNITS/ML VIAL (FIVE THOUSAND) SUBCUT SCH ×3 (06:31→21:16)
[2018-01-11] MEDS: Piperacillin/Tazobactam 13.5 GM IV 24 hour continuous infusion IVPB SCH ×2 (07:52)
[2018-01-11] MEDS: Pantoprazole IV* 40 MG IV SCH (07:55)
[2018-01-11] MEDS ORDERED: Potassium Chloride IV* 40 MEQ in NS 0.9% 250 ML* 250 ML IVPB ONE (08:00)
[2018-01-11] MEDS ORDERED: KCL 20 MEQ/100 ML IVPREMIX* 20 MEQ/100 ML BAG IV SCH (08:00)
--- NOTE | 2018-01-11 08:05 | PN ---
Progress Note - Progress Note Date of Service: 01/11/18 Note: Surgery Ms. Cottrell reports she feels thirsty and thinks she might be "a little woozy" from not eating. She has been urinating without the paz and getting to the bathroom with assistance. Vital Signs 01/10/18 01/10/18 01/10/18 08:30 09:00 09:30 Temperature Pulse Rate 103 96 103 Respiratory 21 21 21 Rate Blood Pressure 130/82 116/65 123/65 (mmHg) O2 Sat by Pulse 92 93 92 Oximetry 01/10/18 01/10/18 01/10/18 10:00 10:01 10:30 Temperature Pulse Rate 103 102 103 Respiratory 25 17 21 Rate Blood Pressure 124/70 115/68 (mmHg) O2 Sat by Pulse 92 95 93 Oximetry 01/10/18 01/10/18 01/10/18 11:00 11:01 11:07 Temperature Pulse Rate 107 101 Respiratory 17 18 19 Rate Blood Pressure 122/78 (mmHg) O2 Sat by Pulse 93 94 Oximetry 01/10/18 01/10/18 01/10/18 11:31 12:03 12:29 Temperature 98.5 F Pulse Rate 99 107 Respiratory 16 18 16 Rate Blood Pressure 126/68 128/71 (mmHg) O2 Sat by Pulse 94 94 Oximetry 01/10/18 01/10/18 01/10/18 12:34 12:36 13:00 Temperature 98.5 F Pulse Rate 107 Respiratory 18 18 16 Rate Blood Pressure 128/71 (mmHg) O2 Sat by Pulse 94 94 95 Oximetry 01/10/18 01/10/18 01/10/18 14:00 15:00 15:17 Temperature 98.5 F Pulse Rate 106 Respiratory 18 18 16 Rate Blood Pressure 124/71 (mmHg) O2 Sat by Pulse 93 95 93 Oximetry 01/10/18 01/10/18 01/10/18 16:00 17:00 18:00 Temperature Pulse Rate Respiratory 16 18 18 Rate Blood Pressure (mmHg) O2 Sat by Pulse 93 95 94 Oximetry 01/10/18 01/10/18 01/10/18 19:00 19:40 19:49 Temperature 98.6 F Pulse Rate 101 Respiratory 20 20 16 Rate Blood Pressure 140/73 (mmHg) O2 Sat by Pulse 97 99 Oximetry 01/10/18 01/10/18 01/10/18 19:59 21:00 22:00 Temperature Pulse Rate Respiratory 20 18 16 Rate Blood Pressure (mmHg) O2 Sat by Pulse 96 95 95 Oximetry 01/10/18 01/10/18 01/11/18 23:00 23:15 00:00 Temperature 98.4 F Pulse Rate 91 Respiratory 18 16 16 Rate Blood Pressure 142/77 (mmHg) O2 Sat by Pulse 94 96 94 Oximetry 01/11/18 01/11/18 01/11/18 01:00 02:00 03:00 Temperature Pulse Rate Respiratory 16 16 16 Rate Blood Pressure (mmHg) O2 Sat by Pulse 96 93 93 Oximetry 01/11/18 01/11/18 01/11/18 03:27 04:00 05:00 Temperature 99.0 F Pulse Rate 99 Respiratory 16 16 16 Rate Blood Pressure 144/81 (mmHg) O2 Sat by Pulse 96 94 94 Oximetry 01/11/18 06:34 Temperature Pulse Rate Respiratory 16 Rate Blood Pressure (mmHg) O2 Sat by Pulse 93 Oximetry Abd: occ BS, protruberant, soft, non-tender Incision: clean and dry ostomy: viable, edematous Intake & Output 01/10/18 01/11/18 01/11/18 22:59 06:59 14:59 Intake Total 0 1061 Output Total 350 450 Balance -350 611 Weight 154 lb 11.2 oz Intake: IV Fluids 1061 ABX - FLAGYL 205 NS (0.9%) 856 Oral 0 0 Output: Urine 350 450 Laboratory Results - last 24 hr 01/10/18 01/11/18 01/11/18 11:05 04:57 04:57 WBC 13.2 H RBC 4.08 Hgb 11.0 L Hct 33 L MCV 82 MCH 27 MCHC 33 RDW 18 H Plt Count 188 MPV 8.3 Neut % (Auto) 89.8 H Lymph % (Auto) 8.0 L [place] % (Auto) 2.0 Eos % (Auto) 0.1 Baso % (Auto) 0.1 Absolute Neuts (auto) 11.9 H Absolute Lymphs (auto) 1.1 Absolute Monos (auto) 0.3 Absolute Eos (auto) 0 Absolute Basos (auto) 0 Absolute Nucleated RBC 0 Nucleated RBC % 0 Sodium 140 Potassium 3.2 L Chloride 112 H Carbon Dioxide 21 L Anion Gap 7 BUN 13 Creatinine 0.60 Est GFR ( Amer) 125.3 Est GFR (Non-Af Amer) 97.5 BUN/Creatinine Ratio 21.7 H Glucose 88 Lactic Acid 1.5 Calcium 7.9 L Phosphorus 1.5 L Magnesium 1.9 Total Bilirubin 0.50 AST 15 ALT 12 Alkaline Phosphatase 47 Total Protein 4.9 L Albumin 2.7 L Globulin 2.2 Albumin/Globulin Ratio 1.2 A/P: POD#3 Making progress. Will start clear liquids, replete potassium and phosphorus, change IVF to D51/2 NSS with potassium. Will re-check labs in AM. CLFoster
[2018-01-11] MEDS ORDERED: Potassium Phosphate IV* 15 MMOLE in NS 0.9% 250 ML* 250 ML IVPB ONE (09:00)
[2018-01-11] MEDS ORDERED: Ondansetron INJ* 2 MG/ML VIAL ONE (13:45)
[2018-01-11] MEDS: D5W 1/2 NS 40 Meq KCL 1000 ML* 1,000 ML IV SCH (13:52)
--- NOTE | 2018-01-11 14:40 | PN ---
Subjective Date of Service: 01/11/18 Interval History: Patient complains of fatigue and abdominal pain at incision with movement. Patient complains of mild nausea but is tolerating fluids. Patient feels weak but has no muscle aches. Patient denies F/C, vomiting, issues with colostomy, headache, dysuria, chest pain, SOB, or other pain. Patient somewhat anxious about condition and condition was discussed at length with patient and daughter. Family History: Unchanged from Admission Social History: Unchanged from Admission Past Medical History: Unchanged from Admission Objective Active Medications: Fentanyl Citrate (Fentanyl*) 50 mcg IV SLOW PU Q4H PRN PRN Reason: PAIN Last Admin: 01/09/18 06:48 Dose: 50 mcg Fluoxetine HCl (Prozac Cap*) 40 mg PO DAILY [facility] Heparin Sodium (Porcine) (Heparin Vial(*)) 5,000 units SUBCUT Q8HR [facility] Last Admin: 01/11/18 13:50 Dose: 5,000 units Metronidazole/Sodium Chloride (Flagyl 500 Mg Ivpb*) 500 mg in 100 mls @ 100 mls /hr IVPB Q8H [facility] Last Admin: 01/11/18 10:01 Dose: 100 mls/hr Piperacillin Sod/Tazobactam (Sod 13.5 gm/ Sodium Chloride) 500 mls @ 20.833 mls /hr IVPB Q24H [facility] Last Admin: 01/11/18 07:52 Dose: 20.833 mls/hr Hydromorphone HCl (Dilaudid Promotion Producer*) 20 mg in 20 mls @ 0 mls/hr SEMICONDUCTOR ENGINEER .Q24H [facility]; Per Protocol PRN Reason: Protocol Sodium Chloride (Ns 0.9% 1000 Ml*) 1,000 mls @ 0 mls/hr IVPB .Q24H [facility] PRN Reason: KVO Last Admin: 01/09/18 14:06 Dose: 15 mls/hr Potassium Chloride/Dextrose (D5w 1/2 Ns 40 Meq Kcl 1000 Ml*) 1,000 mls @ 75 mls /hr IV PER RATE [facility] Last Admin: 01/11/18 13:52 Dose: 75 mls/hr Potassium Phosphate 15 mmole/ (Sodium Chloride) 255 mls @ 42 mls/hr IVPB ONCE ONE Stop: 01/11/18 15:04 Last Admin: 01/11/18 08:59 Dose: 42 mls/hr Metoprolol Tartrate (Lopressor Iv*) 5 mg IV Q6H PRN PRN Reason: hypertension Naloxone HCl (Narcan*) 0.08 mg IV PUSH Q2M PRN PRN Reason: SEDATION Ondansetron HCl (Zofran Inj*) 4 mg IV Q4H PRN PRN Reason: NAUSEA Pantoprazole Sodium (Protonix Iv*) 40 mg IV DAILY [facility] Last Admin: 01/11/18 07:55 Dose: 40 mg Vital Signs - 8 hr 01/11/18 01/11/18 01/11/18 07:00 08:00 08:14 Temperature 97.9 F Pulse Rate 81 Respiratory 16 16 16 Rate Blood Pressure 146/75 (mmHg) O2 Sat by Pulse 94 93 97 Oximetry 01/11/18 01/11/18 01/11/18 09:00 10:00 10:08 Temperature Pulse Rate Respiratory 16 16 16 Rate Blood Pressure (mmHg) O2 Sat by Pulse 93 91 94 Oximetry 01/11/18 01/11/18 11:39 12:08 Temperature 98.4 F Pulse Rate 80 Respiratory 16 16 Rate Blood Pressure 139/74 (mmHg) O2 Sat by Pulse 96 96 Oximetry Oxygen Devices in Use Now: Nasal Cannula Appearance: Patient is a 77yo female who appears stated age and is sitting in the chair in NAD. Eyes: No Scleral Icterus, PERRLA Ears/Nose/Mouth/Throat: NL Teeth, Lips, Gums, Clear Oropharnyx, Mucous Membranes Moist Neck: NL Appearance and Movements; NL JVP, Trachea Midline Respiratory: Symmetrical Chest Expansion and Respiratory Effort, Clear to Auscultation Cardiovascular: RRR, No Edema, - - Grade 3/6 harsh murmur heard best at RUSB. Abdominal: - - Tender to palpation throughout without guarding or rigidity. No signs of inflammation around colostomy, Incision healing well. Lymphatic: No Cervical Adenopathy Extremities: No Edema Skin: No Rash or Ulcers, No Nodules or Sclerosis Neurological: Alert and Oriented x 3, NL Sensation, NL Gait, NL Muscle Strength and Tone, - - CN II-XII intact. Result Diagrams: 01/11/18 04:57 01/11/18 04:57 Additional Lab and Data: Lab Results Microbiology and Other Data: Microbiology 01/09/18 06:49 Urine Culture - Final Urine No Growth (<1,000 CFU/mL) 01/09/18 06:49 Nasal Screen MRSA (PCR)([facility]) - Final Nasal Mrsa Not Detected Assess/Plan/Problems-Billing Assessment: 77 yo female with PMH of aortic stenosis s/p valve replacement, hypertension and depression who presented to the emergency department on 01/08 with c/o abdominal pain and was to have an acute abdomen with a bowel perforation requiring emergent OR which resulted in a colostomy. - Patient Problems (1) Sepsis Current Visit: Yes Status: Acute Comment: Secondary to bowel perf, resolved. New leukocytosis, no fevers or tachycardia. No growth on blood cultures, Lactic normal, Continue antibiotics, Stable and improving, does not likely represent recurrent infection. (2) Status post Jose Roberto procedure Current Visit: Yes Status: Acute Code(s): Z93.3 - COLOSTOMY STATUS SNOMED Code(s): 686347538 Comment: POD 2 - doing well LLQ colostomy - teaching per nursing staff Managed by the Surgical Team Continue Zosyn/Flagyl Pain management with SEMICONDUCTOR ENGINEER Taking in PO fluids with mild nausea. (3) Aortic stenosis Current Visit: Yes Status: Acute Code(s): I35.0 - NONRHEUMATIC AORTIC (VALVE ) STENOSIS SNOMED Code(s): 92320006 Comment: s/p valve repair in August, not on anticoagulation No signs of Valve failure or CHF. (4) Depression Current Visit: Yes Status: Acute Code(s): F32.9 - MAJOR DEPRESSIVE DISORDER , SINGLE EPISODE, UNSPECIFIED SNOMED Code(s): 22964235 Comment: Hx of PTSD/Depression. Anxious about condition Continue Prozac once taking PO consistently. (5) Electrolyte abnormality Current Visit: Yes Status: Acute Code(s): E87.8 - OTH DISORDERS OF ELECTROLYTE AND FLUID BALANCE, NEC SNOMED Code(s): 928299998 Comment: Hypokalemic and Hypophosphatemic today. Replaced, will monitor. (6) Hypertension Current Visit: Yes Status: Acute Code(s): I10 - ESSENTIAL (PRIMARY) HYPERTENSION SNOMED Code(s): 93730302 Comment: Hold norvasc, resume metoprolol. Blood pressure slightly elevated. Continue to monitor. (7) DVT prophylaxis Current Visit: Yes Status: Acute Code(s): YCA5129 - SNOMED Code(s): 147056820 Comment: HSQ (8) Full code status Current Visit: Yes Status: Acute Code(s): Z78.9 - OTHER SPECIFIED HEALTH STATUS SNOMED Code(s): 435794017 Status and Disposition: inpatient. Dispo per surgery.
[2018-01-11] MEDS: Metoprolol Tartrate TAB* 25 MG PO SCH (21:16)
[2018-01-12] MEDS: CMCS Melatonin (NF) 3 MG TAB PO SCH ×2 (00:36→20:43)
[2018-01-12] MEDS: metroNIDAZOLE IV 500 MG/100ML* 500 MG/100 ML BAG IVPB SCH ×3 (02:23→18:12)
[2018-01-12] MEDS: Ondansetron INJ* 2 MG/ML VIAL IV PRN ×2 (05:09→09:02)
[2018-01-12] MEDS: Heparin VIAL(*) 5000 UNITS/ML VIAL (FIVE THOUSAND) SUBCUT SCH ×3 (05:13→21:59)
[2018-01-12] MEDS: D5W 1/2 NS 40 Meq KCL 1000 ML* 1,000 ML IV SCH ×2 (05:43→22:01)
[2018-01-12 06:02] LABS: EGFR Non-African American 97.5 (>60)
[2018-01-12] MEDS ORDERED: Potassium Phosphate IV* 15 MMOLE in NS 0.9% 250 ML* 250 ML IVPB ONE (06:59)
--- NOTE | 2018-01-12 07:37 | PN ---
Progress Note - Progress Note Date of Service: 01/12/18 Note: POD#4 s/p Jose Roberto's Afeb, VS noted UO large, small amts in colost bag Hunter some liqs, tho' still queasy at times. Mild pain, meds helping Color good, does not appear ill Abd-soft, sore, incis clean, few BS, stoma a little congested Labs noted Plan: Cont abx s/p perf bowel Await increased GI fxn Replete KPhos per hospitalist Cont stoma teaching
[2018-01-12] MEDS: Piperacillin/Tazobactam 13.5 GM IV 24 hour continuous infusion IVPB SCH ×2 (08:13)
[2018-01-12] MEDS: Pantoprazole IV* 40 MG IV SCH (08:13)
[2018-01-12] MEDS ORDERED: LORazepam INJ* 2 MG/ML 1 ML VIAL IV PUSH PRN (09:41)
[2018-01-12] MEDS ORDERED: Acetaminophen TAB* 325 MG PO PRN (09:41)
[2018-01-12] MEDS: FLUoxetine CAP* 20 MG PO SCH (09:42)
[2018-01-12] MEDS: Metoprolol Tartrate TAB* 25 MG PO SCH ×2 (09:42→20:43)
[2018-01-12] MEDS ORDERED: Ketorolac INJ* 15 MG/ML 1 ML VIAL ONE (10:37)
[2018-01-12] MEDS: Ketorolac INJ* 15 MG/ML 1 ML VIAL IV PUSH PRN ×2 (10:39→17:13)
--- NOTE | 2018-01-12 11:33 | PN ---
Subjective Date of Service: 01/12/18 Interval History: Patient is anxious and states that she is not in discrete pain but has discomfort in her abdomen. Patient is still nauseated but is able to tolerated some liquids. Putting out drainage and some possible small fecal material form colostomy. No CP, SOB, F/C, Vomiting, dysuria, other changes in urine, or other pain. Patient and family states that she is very sensitive to nausea with opiate pain medication and requested alternative agents. Family History: Unchanged from Admission Social History: Unchanged from Admission Past Medical History: Unchanged from Admission Objective Active Medications: Acetaminophen (Tylenol Tab*) 650 mg PO Q6H PRN PRN Reason: PAIN Fentanyl Citrate (Fentanyl*) 50 mcg IV SLOW PU Q4H PRN PRN Reason: PAIN Last Admin: 01/09/18 06:48 Dose: 50 mcg Fluoxetine HCl (Prozac Cap*) 40 mg PO DAILY [facility] Last Admin: 01/12/18 09:42 Dose: 40 mg Heparin Sodium (Porcine) (Heparin Vial(*)) 5,000 units SUBCUT Q8HR [facility] Last Admin: 01/12/18 05:13 Dose: 5,000 units Metronidazole/Sodium Chloride (Flagyl 500 Mg Ivpb*) 500 mg in 100 mls @ 100 mls /hr IVPB Q8H [facility] Last Admin: 01/12/18 09:41 Dose: 100 mls/hr Piperacillin Sod/Tazobactam (Sod 13.5 gm/ Sodium Chloride) 500 mls @ 20.833 mls /hr IVPB Q24H [facility] Last Admin: 01/12/18 08:13 Dose: 20.833 mls/hr Hydromorphone HCl (Dilaudid Photocomposing Machine Operator*) 20 mg in 20 mls @ 0 mls/hr OPTICIANRY TEACHER .Q24H [facility]; Per Protocol PRN Reason: Protocol Sodium Chloride (Ns 0.9% 1000 Ml*) 1,000 mls @ 0 mls/hr IVPB .Q24H [facility] PRN Reason: KVO Last Admin: 01/09/18 14:06 Dose: 15 mls/hr Potassium Chloride/Dextrose (D5w 1/2 Ns 40 Meq Kcl 1000 Ml*) 1,000 mls @ 75 mls /hr IV PER RATE [facility] Last Admin: 01/12/18 05:43 Dose: 75 mls/hr Potassium Phosphate 15 mmole/ (Sodium Chloride) 255 mls @ 42 mls/hr IVPB ONCE ONE Stop: 01/12/18 13:03 Last Admin: 01/12/18 09:01 Dose: 42 mls/hr Ketorolac Tromethamine (Toradol Inj*) 15 mg IV PUSH Q6H PRN PRN Reason: PAIN Last Admin: 01/12/18 10:39 Dose: 15 mg Lorazepam (Ativan Inj*) 0.5 mg IV PUSH Q6H PRN PRN Reason: ANXIETY Melatonin (Melatonin (Nf)) 3 mg PO BEDTIME [facility] Last Admin: 01/12/18 00:36 Dose: 3 mg Metoprolol Tartrate (Lopressor Iv*) 5 mg IV Q6H PRN PRN Reason: hypertension Metoprolol Tartrate (Lopressor Tab*) 25 mg PO BID [facility] Last Admin: 01/12/18 09:42 Dose: 25 mg Naloxone HCl (Narcan*) 0.08 mg IV PUSH Q2M PRN PRN Reason: SEDATION Ondansetron HCl (Zofran Inj*) 4 mg IV Q4H PRN PRN Reason: NAUSEA Last Admin: 01/12/18 09:02 Dose: 4 mg Pantoprazole Sodium (Protonix Iv*) 40 mg IV DAILY [facility] Last Admin: 01/12/18 08:13 Dose: 40 mg Vital Signs - 8 hr 01/12/18 01/12/18 01/12/18 04:00 05:33 07:22 Temperature 98.0 F Pulse Rate 59 Respiratory 16 16 16 Rate Blood Pressure 122/60 (mmHg) O2 Sat by Pulse 94 94 96 Oximetry Oxygen Devices in Use Now: Nasal Cannula Appearance: Patient is a 77yo female who appears stated age and is sitting in the bed in mild distress from anxiety and discomfort. Eyes: No Scleral Icterus, PERRLA Ears/Nose/Mouth/Throat: NL Teeth, Lips, Gums, Clear Oropharnyx, Mucous Membranes Moist Neck: NL Appearance and Movements; NL JVP, Trachea Midline Respiratory: Symmetrical Chest Expansion and Respiratory Effort, Clear to Auscultation Cardiovascular: NL Sounds; No Murmurs; No JVD, RRR, No Edema Abdominal: - - Hypoactive bowel sounds. Tender throughout. [place] stoma. No rebound. Small amount of drainage from stoma. Lymphatic: No Cervical Adenopathy Extremities: No Edema, No Clubbing, Cyanosis Skin: No Nodules or Sclerosis - Slight red, blanching macular rash on back. Non- pruritic., - Neurological: Alert and Oriented x 3, NL Sensation, NL Gait, NL Muscle Strength and Tone, - - CN II-XII intact. Result Diagrams: 01/11/18 04:57 01/12/18 05:13 Additional Lab and Data: Lab Results Microbiology and Other Data: Microbiology 01/09/18 06:49 Urine Culture - Final Urine No Growth (<1,000 CFU/mL) 01/09/18 06:49 Nasal Screen MRSA (PCR)(VIOLETA) - Final Nasal Mrsa Not Detected Assess/Plan/Problems-Billing Assessment: 77 yo female with PMH of aortic stenosis s/p valve replacement, hypertension and depression who presented to the emergency department on 01/08 with c/o abdominal pain and was to have an acute abdomen with a bowel perforation requiring emergent OR which resulted in a colostomy. - Patient Problems (1) Sepsis Current Visit: Yes Status: Acute Comment: Secondary to bowel perf, resolved. New leukocytosis, no fevers or tachycardia. No growth on blood cultures, Lactic normal, Continue antibiotics, Stable and improving, does not likely represent recurrent infection. (2) Status post Jose Roberto procedure Current Visit: Yes Status: Acute Code(s): Z93.3 - COLOSTOMY STATUS SNOMED Code(s): 899177043 Comment: POD 3 - doing well LLQ colostomy - teaching per nursing staff Managed by the Surgical Team Continue Zosyn/Flagyl Pain management with OPTICIANRY TEACHER, Toradol, Tylenol Taking in PO fluids with mild nausea. (3) Aortic stenosis Current Visit: Yes Status: Acute Code(s): I35.0 - NONRHEUMATIC AORTIC (VALVE ) STENOSIS SNOMED Code(s): 85398616 Comment: s/p valve repair in August, not on anticoagulation No signs of Valve failure or CHF. (4) Depression Current Visit: Yes Status: Acute Code(s): F32.9 - MAJOR DEPRESSIVE DISORDER , SINGLE EPISODE, UNSPECIFIED SNOMED Code(s): 53925491 Comment: Hx of PTSD/Depression. Anxious about condition Continue Prozac and ativan PRN (5) Electrolyte abnormality Current Visit: Yes Status: Acute Code(s): E87.8 - OTH DISORDERS OF ELECTROLYTE AND FLUID BALANCE, NEC SNOMED Code(s): 884510860 Comment: Hypokalemic and Hypophosphatemic again today. Replacing, will monitor. (6) Hypertension Current Visit: Yes Status: Acute Code(s): I10 - ESSENTIAL (PRIMARY) HYPERTENSION SNOMED Code(s): 94445222 Comment: Hold norvasc, resume metoprolol. Normotensive. Continue to monitor. (7) DVT prophylaxis Current Visit: Yes Status: Acute Code(s): QRI4430 - SNOMED Code(s): 538813082 Comment: HSQ (8) Full code status Current Visit: Yes Status: Acute Code(s): Z78.9 - OTHER SPECIFIED HEALTH STATUS SNOMED Code(s): 449010648 Status and Disposition: inpatient. Dispo per surgery.
[2018-01-13] MEDS: metroNIDAZOLE IV 500 MG/100ML* 500 MG/100 ML BAG IVPB SCH ×3 (02:13→18:01)
[2018-01-13] MEDS: Ondansetron INJ* 2 MG/ML VIAL IV PRN ×4 (03:32→21:35)
[2018-01-13] MEDS: Heparin VIAL(*) 5000 UNITS/ML VIAL (FIVE THOUSAND) SUBCUT SCH ×3 (05:36→21:37)
[2018-01-13] MEDS: hydrOXYzine HCL TAB* 10 MG PO PRN ×3 (05:39→20:36)
[2018-01-13 05:51] LABS: ABS Basophils 0 10^3/ul (0-0.2); ABS Eosinophils 0.1 10^3/ul (0-0.6); ABS Monocytes 0.6 10^3/ul (0-0.8); ABS Neutrophils 4.1 10^3/ul (1.5-7.7); ABS Nucleated RBC 0 10^3/ul; Eosinophil % 2.5 % (0-6); Hematocrit 31 % (35-47); Hemoglobin 10.3 g/dl (12.0-16.0); Lymphocyte % 17.7 % (25-47); Mean Corpuscular HGB Conc 33 g/dl (31-36); Mean Corpuscular Hemoglobin 27 pg (27-31); Mean Corpuscular Volume 82 fL (80-97); Mean Platelet Volume 8.5 um3 (7.4-10.4); Nucleated Red Blood Cells % 0; Platelet Count 147 10^3/ul (150-450); Red Blood Count 3.76 10^6/ul (4.0-5.4); Red Cell Distribution Width 18 % (10.5-15); White Blood Count 5.8 10^3/ul (3.5-10.8)
[2018-01-13 06:14] LABS: EGFR Non-African American 93.8 (>60)
[2018-01-13] MEDS ORDERED: Magnesium Sulfate 2 GM IV* 2 GM/50 ML BAG IVPB ONE (06:53)
[2018-01-13] MEDS ORDERED: Furosemide IV* 10 MG/ML 2 ML VIAL (20 MG) IV ONE (07:53)
[2018-01-13] MEDS ORDERED: Potassium Phosphate IV* 15 MMOLE in NS 0.9% 250 ML* 250 ML IVPB ONE (07:54)
[2018-01-13] MEDS ORDERED: HYDROmorphone INJ* 2 MG/ML CARPUJECT SYRINGE IV SLOW PU PRN (08:01)
--- NOTE | 2018-01-13 08:01 | PN ---
Progress Note - Progress Note Date of Service: 01/13/18 SOAP: Subjective: Pt seen and examined. Feels "blah" no appetite. Thirsty. swollen. some nausea. Objective: af vss uo good positive I/Os lungs pos crackles b/l abdo: soft/ mild distension/ nontender ostomy with gas and hard stool staple line intact no drainage ext wnl labs noted Assessment: POD 4 Hartmanns, Plan: laskylee today d/c creative perfumer advance diet ostomy teaching
[2018-01-13] MEDS: Metoprolol Tartrate TAB* 25 MG PO SCH ×2 (09:18→20:35)
[2018-01-13] MEDS: amLODIPine TAB* 5 MG PO SCH (09:18)
[2018-01-13] MEDS: FLUoxetine CAP* 20 MG PO SCH (09:18)
[2018-01-13] MEDS: Piperacillin/Tazobactam 13.5 GM IV 24 hour continuous infusion IVPB SCH ×2 (09:18)
[2018-01-13] MEDS: OMEPRAZOLE 10 MG PO SCH (09:25)
--- NOTE | 2018-01-13 13:29 | PN ---
Subjective Date of Service: 01/13/18 Interval History: Patient has continued discomfort, decreased anxiety, mild shortness of breath which has diminished with lasix administration. Patient is urinating frequently. Moderate nausea with PO intake. Patient denies F/C, Vomiting, CP, Dysuria, dizziness, palpitations, or other pain. Family History: Unchanged from Admission Social History: Unchanged from Admission Past Medical History: Unchanged from Admission Objective Active Medications: Acetaminophen (Tylenol Tab*) 650 mg PO Q6H PRN PRN Reason: PAIN Amlodipine Besylate (Norvasc Tab*) 5 mg PO DAILY [facility] Last Admin: 01/13/18 09:18 Dose: 5 mg Fluoxetine HCl (Prozac Cap*) 40 mg PO DAILY [facility] Last Admin: 01/13/18 09:18 Dose: 40 mg Heparin Sodium (Porcine) (Heparin Vial(*)) 5,000 units SUBCUT Q8HR [facility] Last Admin: 01/13/18 05:36 Dose: 5,000 units Hydromorphone HCl (Dilaudid Inj*) 0.5 mg IV SLOW PU Q4H PRN PRN Reason: PAIN Hydroxyzine HCl (Atarax Tab*) 10 mg PO Q6H PRN PRN Reason: ANXIETY Last Admin: 01/13/18 05:39 Dose: 10 mg Metronidazole/Sodium Chloride (Flagyl 500 Mg Ivpb*) 500 mg in 100 mls @ 100 mls /hr IVPB Q8H [facility] Last Admin: 01/13/18 10:15 Dose: 100 mls/hr Piperacillin Sod/Tazobactam (Sod 13.5 gm/ Sodium Chloride) 500 mls @ 20.833 mls /hr IVPB Q24H [facility] Last Admin: 01/13/18 09:18 Dose: 20.833 mls/hr Potassium Phosphate 15 mmole/ (Sodium Chloride) 255 mls @ 42 mls/hr IVPB ONCE ONE Stop: 01/13/18 13:58 Last Admin: 01/13/18 09:18 Dose: 42 mls/hr Ketorolac Tromethamine (Toradol Inj*) 15 mg IV PUSH Q6H PRN PRN Reason: PAIN Last Admin: 01/12/18 17:13 Dose: 15 mg Melatonin (Melatonin (Nf)) 3 mg PO BEDTIME [facility] Last Admin: 01/12/18 20:43 Dose: 3 mg Metoprolol Tartrate (Lopressor Tab*) 25 mg PO BID [facility] Last Admin: 01/13/18 09:18 Dose: 25 mg Omeprazole (Prilosec Cap(Nf)) 10 mg PO DAILY [facility] Last Admin: 01/13/18 09:25 Dose: Not Given Ondansetron HCl (Zofran Inj*) 4 mg IV Q6H PRN PRN Reason: NAUSEA Last Admin: 01/13/18 09:31 Dose: 4 mg Vital Signs - 8 hr 01/13/18 01/13/18 01/13/18 05:39 06:00 08:00 Temperature Pulse Rate Respiratory 16 17 20 Rate Blood Pressure (mmHg) O2 Sat by Pulse 95 95 Oximetry 01/13/18 01/13/18 01/13/18 08:14 08:21 09:47 Temperature 98.0 F Pulse Rate 56 Respiratory 18 18 18 Rate Blood Pressure 160/68 (mmHg) O2 Sat by Pulse 99 95 Oximetry 01/13/18 11:41 Temperature 97.3 F Pulse Rate 56 Respiratory 16 Rate Blood Pressure 133/66 (mmHg) O2 Sat by Pulse 99 Oximetry Oxygen Devices in Use Now: None Appearance: Patient is a 77yo female who appears stated age and is sitting in the chair in [facility]. Eyes: No Scleral Icterus, PERRLA Ears/Nose/Mouth/Throat: NL Teeth, Lips, Gums, Clear Oropharnyx, Mucous Membranes Moist Neck: NL Appearance and Movements; NL JVP, Trachea Midline Respiratory: Symmetrical Chest Expansion and Respiratory Effort, - - Diminished at bases, no Adventitious lung sounds. Cardiovascular: NL Sounds; No Murmurs; No JVD, RRR, - - trace edema in B/L LE. Abdominal: - - Normal sounds, tenderness without guarding throughout. Surgical incisions without drainage or erythema. Colostomy without signs of ischemia and production of a small amount of brown liquid stool. Lymphatic: No Cervical Adenopathy Extremities: No Clubbing, Cyanosis Skin: No Nodules or Sclerosis Neurological: Alert and Oriented x 3, NL Sensation, NL Gait, NL Muscle Strength and Tone, - - CN II-XII intact. Result Diagrams: 01/13/18 05:03 01/13/18 05:03 Additional Lab and Data: Lab Results Microbiology and Other Data: Microbiology 01/09/18 06:49 Urine Culture - Final Urine No Growth (<1,000 CFU/mL) 01/09/18 06:49 Nasal Screen MRSA (PCR)(VIOLETA) - Final Nasal Mrsa Not Detected Assess/Plan/Problems-Billing Assessment: 77 yo female with PMH of aortic stenosis s/p valve replacement, hypertension and depression who presented to the emergency department on 01/08 with c/o abdominal pain and was to have an acute abdomen with a bowel perforation requiring emergent OR which resulted in a colostomy. - Patient Problems (1) Sepsis Current Visit: Yes Status: Acute Comment: Secondary to bowel perf, resolved. Leukocytosis resolved, no fevers or tachycardia. No growth on blood cultures, Lactic normal, Continue antibiotics, Stable and improving. (2) Status post Jose Roberto procedure Current Visit: Yes Status: Acute Code(s): Z93.3 - COLOSTOMY STATUS SNOMED Code(s): 360805065 Comment: POD 4 - doing well LLQ colostomy - teaching per nursing staff Managed by the Surgical Team Continue Zosyn/Flagyl Pain management with Opiates, Toradol, Tylenol. Discontinue CASING IN LINE SETTER. Taking in PO fluids with mild nausea. Plan to advance tomorrow. (3) Aortic stenosis Current Visit: Yes Status: Acute Code(s): I35.0 - NONRHEUMATIC AORTIC (VALVE ) STENOSIS SNOMED Code(s): 47063085 Comment: s/p valve repair in August, not on anticoagulation No signs of Valve failure. Slight fluid overload likely due to HFpEF, responded to lasix, not in acute exacerbation. (4) Depression Current Visit: Yes Status: Acute Code(s): F32.9 - MAJOR DEPRESSIVE DISORDER , SINGLE EPISODE, UNSPECIFIED SNOMED Code(s): 51690123 Comment: Hx of PTSD/Depression. Anxious about condition Continue Prozac and Vistaril PRN (5) Electrolyte abnormality Current Visit: Yes Status: Acute Code(s): E87.8 - OTH DISORDERS OF ELECTROLYTE AND FLUID BALANCE, NEC SNOMED Code(s): 877774308 Comment: Hypokalemia and Hypophosphatemia resolved. Hypomagnesemic, replaced. (6) Hypertension Current Visit: Yes Status: Acute Code(s): I10 - ESSENTIAL (PRIMARY) HYPERTENSION SNOMED Code(s): 29944180 Comment: Resume norvasc, metoprolol. Slightly hypertensive. Continue to monitor. (7) DVT prophylaxis Current Visit: Yes Status: Acute Code(s): QOR5944 - SNOMED Code(s): 493367566 Comment: HSQ (8) Full code status Current Visit: Yes Status: Acute Code(s): Z78.9 - OTHER SPECIFIED HEALTH STATUS SNOMED Code(s): 001208622 Status and Disposition: inpatient. Dispo per surgery.
[2018-01-13] MEDS: CMCS Melatonin (NF) 3 MG TAB PO SCH (20:35)
[2018-01-14] MEDS: Ketorolac INJ* 15 MG/ML 1 ML VIAL IV PUSH PRN (00:17)
[2018-01-14] MEDS: metroNIDAZOLE IV 500 MG/100ML* 500 MG/100 ML BAG IVPB SCH ×3 (01:50→18:00)
[2018-01-14] MEDS: hydrOXYzine HCL TAB* 10 MG PO PRN (05:04)
[2018-01-14] MEDS: Heparin VIAL(*) 5000 UNITS/ML VIAL (FIVE THOUSAND) SUBCUT SCH ×3 (05:31→21:55)
[2018-01-14 05:52] LABS: Hematocrit 31 % (35-47); Hemoglobin 10.5 g/dl (12.0-16.0); Mean Corpuscular HGB Conc 34 g/dl (31-36); Mean Corpuscular Hemoglobin 27 pg (27-31); Mean Corpuscular Volume 82 fL (80-97); Mean Platelet Volume 8.5 um3 (7.4-10.4); Platelet Count 179 10^3/ul (150-450); Red Blood Count 3.84 10^6/ul (4.0-5.4); Red Cell Distribution Width 18 % (10.5-15); White Blood Count 5.4 10^3/ul (3.5-10.8)
[2018-01-14 06:06] LABS: EGFR Non-African American 88.9 (>60)
[2018-01-14 06:22] LABS: Monocytes % 8 % (0-7)
[2018-01-14] MEDS ORDERED: Magnesium Sulfate IV* 3 GM in NS 0.9% 100 ML* 100 ML IVPB ONE (06:56)
[2018-01-14] MEDS ORDERED: KCL 20 MEQ/100 ML IVPREMIX* 20 MEQ/100 ML BAG IV SCH (07:00)
[2018-01-14] MEDS ORDERED: Magnesium Sulfate 2 GM IV IVPB ONE (08:00)
[2018-01-14] MEDS ORDERED: Potassium Chloride IV* 40 MEQ in NS 0.9% 250 ML* 250 ML IVPB ONE (08:00)
[2018-01-14] MEDS: Piperacillin/Tazobactam 13.5 GM IV 24 hour continuous infusion IVPB SCH ×2 (08:09)
[2018-01-14] MEDS: Metoprolol Tartrate TAB* 25 MG PO SCH ×2 (08:20→21:55)
[2018-01-14] MEDS: FLUoxetine CAP* 20 MG PO SCH (08:20)
[2018-01-14] MEDS: amLODIPine TAB* 5 MG PO SCH (08:20)
[2018-01-14] MEDS: OMEPRAZOLE 10 MG PO SCH (08:22)
[2018-01-14] MEDS: Ondansetron INJ* 2 MG/ML VIAL IV PRN (08:47)
[2018-01-14] MEDS ORDERED: Magnesium Sulfate 1 GM IV* 1 GM/100 ML BAG IV ONE (09:00)
--- NOTE | 2018-01-14 10:46 | PN ---
Progress Note - Progress Note Date of Service: 01/14/18 SOAP: Subjective: Pt seen and examined. feels better today. No nausea. Objective: af vss diuresed after lasix yesterday a and ox3, nad lungs clear abdo: soft/ ND/NT ostomy pink, pos stool, gas no calf tenderness Path reviewed Assessment: POD 5 vikki's Plan: advance diet ibuprofen for pain d/c planning- will need colostomy appliances
[2018-01-14] MEDS ORDERED: Ibuprofen TAB* 400 MG PO PRN (10:47)
--- NOTE | 2018-01-14 14:07 | PN ---
Subjective Date of Service: 01/14/18 Interval History: Patient continues to complain of mild nausea with eating but it is controlled with antiemetic medication. Patient denies anxiety, significant pain, F/C, Vomiting, CP, SOB, Dysuria, or other pain. Patient had very vivid dreams when she took the Vistaril. Family History: Unchanged from Admission Social History: Unchanged from Admission Past Medical History: Unchanged from Admission Objective Active Medications: Acetaminophen (Tylenol Tab*) 650 mg PO Q6H PRN PRN Reason: PAIN Amlodipine Besylate (Norvasc Tab*) 5 mg PO DAILY [facility] Last Admin: 01/14/18 08:20 Dose: 5 mg Fluoxetine HCl (Prozac Cap*) 40 mg PO DAILY [facility] Last Admin: 01/14/18 08:20 Dose: 40 mg Heparin Sodium (Porcine) (Heparin Vial(*)) 5,000 units SUBCUT Q8HR [facility] Last Admin: 01/14/18 05:31 Dose: 5,000 units Hydromorphone HCl (Dilaudid Inj*) 0.5 mg IV SLOW PU Q4H PRN PRN Reason: PAIN Hydroxyzine HCl (Atarax Tab*) 10 mg PO Q6H PRN PRN Reason: ANXIETY Last Admin: 01/14/18 05:04 Dose: 10 mg Metronidazole/Sodium Chloride (Flagyl 500 Mg Ivpb*) 500 mg in 100 mls @ 100 mls /hr IVPB Q8H [facility] Last Admin: 01/14/18 11:10 Dose: 100 mls/hr Piperacillin Sod/Tazobactam (Sod 13.5 gm/ Sodium Chloride) 500 mls @ 20.833 mls /hr IVPB Q24H [facility] Last Admin: 01/14/18 08:09 Dose: 20.833 mls/hr Ibuprofen (Motrin Tab*) 400 mg PO Q6H PRN PRN Reason: PAIN Melatonin (Melatonin (Nf)) 3 mg PO BEDTIME [facility] Last Admin: 01/13/18 20:35 Dose: 3 mg Metoprolol Tartrate (Lopressor Tab*) 25 mg PO BID [facility] Last Admin: 01/14/18 08:20 Dose: 25 mg Omeprazole (Prilosec Cap(Nf)) 10 mg PO DAILY [facility] Last Admin: 01/14/18 08:22 Dose: Not Given Ondansetron HCl (Zofran Inj*) 4 mg IV Q6H PRN PRN Reason: NAUSEA Last Admin: 01/14/18 08:47 Dose: 4 mg Vital Signs - 8 hr 01/14/18 01/14/18 01/14/18 07:06 08:21 08:30 Temperature 98.2 F Pulse Rate 62 Respiratory 16 16 18 Rate Blood Pressure 151/72 (mmHg) O2 Sat by Pulse 97 Oximetry 01/14/18 11:07 Temperature 98.0 F Pulse Rate 63 Respiratory 17 Rate Blood Pressure 121/64 (mmHg) O2 Sat by Pulse 95 Oximetry Oxygen Devices in Use Now: None Appearance: Patient is a 77yo female who appears stated age and is sitting in the bed in [facility]. Eyes: No Scleral Icterus, PERRLA Ears/Nose/Mouth/Throat: NL Teeth, Lips, Gums, Clear Oropharnyx, Mucous Membranes Moist Neck: NL Appearance and Movements; NL JVP, Trachea Midline Respiratory: Symmetrical Chest Expansion and Respiratory Effort, Clear to Auscultation Cardiovascular: NL Sounds; No Murmurs; No JVD, RRR, No Edema Abdominal: No Hepatosplenomegaly, - - Diffusely tender to palpation. Beefy Red Stoma, liquid brown stool in bag. Normoactive bowel sounds. Incision healing well. Lymphatic: No Cervical Adenopathy Extremities: No Edema, No Clubbing, Cyanosis Skin: No Nodules or Sclerosis Neurological: Alert and Oriented x 3, NL Sensation, NL Muscle Strength and Tone Result Diagrams: 01/14/18 04:52 01/14/18 04:52 Additional Lab and Data: Lab Results Microbiology and Other Data: Microbiology 01/09/18 06:49 Urine Culture - Final Urine No Growth (<1,000 CFU/mL) 01/09/18 06:49 Nasal Screen MRSA (PCR)(VIOLETA) - Final Nasal Mrsa Not Detected Assess/Plan/Problems-Billing Assessment: 77 yo female with PMH of aortic stenosis s/p valve replacement, hypertension and depression who presented to the emergency department on 01/08 with c/o abdominal pain and was to have an acute abdomen with a bowel perforation requiring emergent OR which resulted in a colostomy. - Patient Problems (1) Sepsis Current Visit: Yes Status: Acute Comment: Secondary to bowel perf, resolved. Leukocytosis resolved, no fevers or tachycardia. No growth on blood cultures, Lactic normal, Continue antibiotics, Stable and improving. (2) Status post Jose Roberto procedure Current Visit: Yes Status: Acute Code(s): Z93.3 - COLOSTOMY STATUS SNOMED Code(s): 584967763 Comment: POD 5 - doing well LLQ colostomy - teaching per nursing staff Managed by the Surgical Team Continue Zosyn/Flagyl Pain management with Opiates, Ibuprofen, Tylenol. Tolerating soft diet. (3) Aortic stenosis Current Visit: Yes Status: Acute Code(s): I35.0 - NONRHEUMATIC AORTIC (VALVE ) STENOSIS SNOMED Code(s): 70118639 Comment: s/p valve repair in August, not on anticoagulation No signs of Valve failure. Slight fluid overload responded to Lasix. (4) Depression Current Visit: Yes Status: Acute Code(s): F32.9 - MAJOR DEPRESSIVE DISORDER , SINGLE EPISODE, UNSPECIFIED SNOMED Code(s): 08324181 Comment: Hx of PTSD/Depression. Anxious about condition Continue Prozac and Vistaril PRN (5) Electrolyte abnormality Current Visit: Yes Status: Acute Code(s): E87.8 - OTH DISORDERS OF ELECTROLYTE AND FLUID BALANCE, NEC SNOMED Code(s): 625341431 Comment: Hypophosphatemia resolved. Hypomagnesemic, Hypokalemic. These have been replaced. (6) Hypertension Current Visit: Yes Status: Acute Code(s): I10 - ESSENTIAL (PRIMARY) HYPERTENSION SNOMED Code(s): 19103924 Comment: Resume norvasc, metoprolol. Slightly hypertensive. Continue to monitor. (7) DVT prophylaxis Current Visit: Yes Status: Acute Code(s): QLP8489 - SNOMED Code(s): 029439640 Comment: HSQ (8) Full code status Current Visit: Yes Status: Acute Code(s): Z78.9 - OTHER SPECIFIED HEALTH STATUS SNOMED Code(s): 446877207 Status and Disposition: inpatient. Dispo per surgery.
[2018-01-14] MEDS: Hydrocortisone 1% CREAM* 30 GM TUBE TOPICAL PRN (21:55)
[2018-01-14] MEDS: CMCS Melatonin (NF) 3 MG TAB PO SCH (22:10)
[2018-01-15] MEDS: metroNIDAZOLE IV 500 MG/100ML* 500 MG/100 ML BAG IVPB SCH ×3 (01:47→18:25)
[2018-01-15 05:46] LABS: Hematocrit 33 % (35-47); Hemoglobin 11.2 g/dl (12.0-16.0); Mean Corpuscular HGB Conc 34 g/dl (31-36); Mean Corpuscular Hemoglobin 27 pg (27-31); Mean Corpuscular Volume 81 fL (80-97); Mean Platelet Volume 8.2 um3 (7.4-10.4); Platelet Count 234 10^3/ul (150-450); Red Blood Count 4.09 10^6/ul (4.0-5.4); Red Cell Distribution Width 18 % (10.5-15); White Blood Count 5.8 10^3/ul (3.5-10.8)
[2018-01-15] MEDS: Heparin VIAL(*) 5000 UNITS/ML VIAL (FIVE THOUSAND) SUBCUT SCH ×3 (05:55→21:40)
[2018-01-15 06:01] LABS: EGFR Non-African American 92.1 (>60)
[2018-01-15 06:06] LABS: ABS Basophils 0 10^3/ul (0-0.2); ABS Eosinophils 0.4 10^3/ul (0-0.6); ABS Lymphocytes 1.5 10^3/ul (1.0-4.8); ABS Monocytes 0.7 10^3/ul (0-0.8); ABS Neutrophils 3.2 10^3/ul (1.5-7.7); ABS Nucleated RBC 0 10^3/ul; Eosinophil % 6.2 % (0-6); Lymphocyte % 25.7 % (25-47); Nucleated Red Blood Cells % 0
[2018-01-15] MEDS: Ondansetron INJ* 2 MG/ML VIAL IV PRN ×3 (06:31→23:28)
[2018-01-15] MEDS ORDERED: Potassium Chloride LIQUID* 20 MEQ PACKET PO ONE (06:50)
[2018-01-15] MEDS: FLUoxetine CAP* 20 MG PO SCH (08:28)
[2018-01-15] MEDS: amLODIPine TAB* 5 MG PO SCH (08:28)
[2018-01-15] MEDS: Metoprolol Tartrate TAB* 25 MG PO SCH ×2 (08:29→21:40)
[2018-01-15] MEDS: Piperacillin/Tazobactam 13.5 GM IV 24 hour continuous infusion IVPB SCH ×2 (08:40)
[2018-01-15] MEDS: OMEPRAZOLE 10 MG PO SCH (08:45)
[2018-01-15] MEDS ORDERED: Potassium Chlor TAB* 20 MEQ TAB.ER PO ONE (09:18)
--- NOTE | 2018-01-15 09:48 | PN ---
Progress Note - Progress Note Date of Service: 01/15/18 SOAP: Subjective:POD#6 s/p Jose Roberto's ghazal soft diet;working on ostomy care;not requiring analgesics;up walking [] Objective:afeb,VSS;lungs:clear bilat;heart:RRR;abd:midline incision intact with chetan,no drainage oer erythema;colostomy L mid abd,stoma pink,brown stool, semiliquid;passing flatus;ext:nontender,no edema Laboratory Results - last 24 hr 01/15/18 01/15/18 05:33 05:33 WBC 5.8 RBC 4.09 Hgb 11.2 L Hct 33 L MCV 81 MCH 27 MCHC 34 RDW 18 H Plt Count 234 MPV 8.2 Neut % (Auto) 56.0 Lymph % (Auto) 25.7 Russell % (Auto) 11.8 H Eos % (Auto) 6.2 H Baso % (Auto) 0.3 Absolute Neuts (auto) 3.2 Absolute Lymphs (auto) 1.5 Absolute Monos (auto) 0.7 Absolute Eos (auto) 0.4 Absolute Basos (auto) 0 Absolute Nucleated RBC 0 Nucleated RBC % 0 Sodium 137 L Potassium 3.0 L Chloride 106 Carbon Dioxide 26 Anion Gap 5 BUN 8 Creatinine 0.63 Est GFR ( Amer) 118.5 Est GFR (Non-Af Amer) 92.1 BUN/Creatinine Ratio 12.7 Glucose 99 Calcium 7.7 L Magnesium 1.9 [] Assessment:doing well,would like to go home tomorrow,K+low [] Plan:cont IV abx today,cont ostomy teaching,replete K+ per hosp discharge 01/16/18;VNS skilled nsg at home []
--- NOTE | 2018-01-15 10:51 | PN ---
Subjective Date of Service: 01/15/18 Interval History: Patient slept better overnight. No abdominal pain. One episode of Nausea which responded to medication. No CP, SOB, F/C, dysuria, dizziness, changes in vision , or other pain. Patient feels "bloated" from too much fluid. Patient feels apprehensive about going home today due to being uncomfortable with managing colostomy at home. Family History: Unchanged from Admission Social History: Unchanged from Admission Past Medical History: Unchanged from Admission Objective Active Medications: Acetaminophen (Tylenol Tab*) 650 mg PO Q6H PRN PRN Reason: PAIN Amlodipine Besylate (Norvasc Tab*) 5 mg PO DAILY [facility] Last Admin: 01/15/18 08:28 Dose: 5 mg Fluoxetine HCl (Prozac Cap*) 40 mg PO DAILY [facility] Last Admin: 01/15/18 08:28 Dose: 40 mg Heparin Sodium (Porcine) (Heparin Vial(*)) 5,000 units SUBCUT Q8HR [facility] Last Admin: 01/15/18 05:55 Dose: 5,000 units Hydrocortisone (Hytone Cream 1%*) 1 applic TOPICAL BID PRN PRN Reason: ITCHING Last Admin: 01/14/18 21:55 Dose: 1 applic Hydromorphone HCl (Dilaudid Inj*) 0.5 mg IV SLOW PU Q4H PRN PRN Reason: PAIN Hydroxyzine HCl (Atarax Tab*) 10 mg PO Q6H PRN PRN Reason: ANXIETY Last Admin: 01/14/18 05:04 Dose: 10 mg Metronidazole/Sodium Chloride (Flagyl 500 Mg Ivpb*) 500 mg in 100 mls @ 100 mls /hr IVPB Q8H [facility] Last Admin: 01/15/18 01:47 Dose: 100 mls/hr Piperacillin Sod/Tazobactam (Sod 13.5 gm/ Sodium Chloride) 500 mls @ 20.833 mls /hr IVPB Q24H [facility] Last Admin: 01/15/18 08:40 Dose: 20.833 mls/hr Ibuprofen (Motrin Tab*) 400 mg PO Q6H PRN PRN Reason: PAIN Melatonin (Melatonin (Nf)) 3 mg PO BEDTIME [facility] Last Admin: 01/14/18 22:10 Dose: 3 mg Metoprolol Tartrate (Lopressor Tab*) 25 mg PO BID [facility] Last Admin: 01/15/18 08:29 Dose: 25 mg Omeprazole (Prilosec Cap(Nf)) 10 mg PO DAILY [facility] Last Admin: 01/15/18 08:45 Dose: Not Given Ondansetron HCl (Zofran Inj*) 4 mg IV Q6H PRN PRN Reason: NAUSEA Last Admin: 01/15/18 06:31 Dose: 4 mg Vital Signs - 8 hr 01/15/18 01/15/18 01/15/18 03:54 07:45 07:51 Temperature 98.3 F 98.6 F Pulse Rate 65 72 Respiratory 18 16 18 Rate Blood Pressure 139/69 116/61 (mmHg) O2 Sat by Pulse 97 95 Oximetry Oxygen Devices in Use Now: None Appearance: Patient is a 77yo female who appears stated age and is sitting in the bed in [facility]. Eyes: No Scleral Icterus, PERRLA Ears/Nose/Mouth/Throat: NL Teeth, Lips, Gums, Clear Oropharnyx, Mucous Membranes Moist Neck: NL Appearance and Movements; NL JVP, Trachea Midline Respiratory: Symmetrical Chest Expansion and Respiratory Effort, Clear to Auscultation Cardiovascular: RRR, No Edema, - - Grade 2/6 PATRICE at RUSB. Abdominal: No Hepatosplenomegaly, - - Normoactive bowel sounds, increasing amount of liquid stool in colostomy bag. Well healing surgical incisions. Lymphatic: No Cervical Adenopathy Extremities: No Edema, No Clubbing, Cyanosis Skin: No Nodules or Sclerosis, - - Macular rash on upper back unchanged from previous exam. Neurological: Alert and Oriented x 3, NL Sensation, NL Muscle Strength and Tone Result Diagrams: 01/15/18 05:33 01/15/18 05:33 Additional Lab and Data: Lab Results Microbiology and Other Data: Microbiology 01/09/18 06:49 Urine Culture - Final Urine No Growth (<1,000 CFU/mL) 01/09/18 06:49 Nasal Screen MRSA (PCR)(VIOLETA) - Final Nasal Mrsa Not Detected Assess/Plan/Problems-Billing Assessment: 77 yo female with PMH of aortic stenosis s/p valve replacement, hypertension and depression who presented to the emergency department on 01/08 with c/o abdominal pain and was to have an acute abdomen with a bowel perforation requiring emergent OR which resulted in a colostomy. - Patient Problems (1) Sepsis Current Visit: Yes Status: Acute Comment: Secondary to bowel perf, resolved. Leukocytosis resolved, no fevers or tachycardia. No growth on blood cultures, Lactic normal, Continue antibiotics, Stable and improving. (2) Status post Jose Roberto procedure Current Visit: Yes Status: Acute Code(s): Z93.3 - COLOSTOMY STATUS SNOMED Code(s): 903906549 Comment: POD 6 - doing well LLQ colostomy - teaching per nursing staff, patient still does not feel comfortable Managed by the Surgical Team Continue Zosyn/Flagyl Pain management with Opiates, Ibuprofen, Tylenol. Not needing analgesics. Tolerating soft diet. (3) Aortic stenosis Current Visit: Yes Status: Acute Code(s): I35.0 - NONRHEUMATIC AORTIC (VALVE ) STENOSIS SNOMED Code(s): 94213282 Comment: s/p valve repair in August, not on anticoagulation No signs of Valve failure. Slight fluid overload responded to Lasix. (4) Depression Current Visit: Yes Status: Acute Code(s): F32.9 - MAJOR DEPRESSIVE DISORDER , SINGLE EPISODE, UNSPECIFIED SNOMED Code(s): 45624458 Comment: Hx of PTSD/Depression. Anxious about condition Continue Prozac and Vistaril PRN. Not needing PRN (5) Electrolyte abnormality Current Visit: Yes Status: Acute Code(s): E87.8 - OTH DISORDERS OF ELECTROLYTE AND FLUID BALANCE, NEC SNOMED Code(s): 758235969 Comment: Hypophosphatemia resolved. Hypomagnesemia resolved. Hypokalemic. Replaced. (6) Hypertension Current Visit: Yes Status: Acute Code(s): I10 - ESSENTIAL (PRIMARY) HYPERTENSION SNOMED Code(s): 05594640 Comment: Resume norvasc, metoprolol. Normotensive. Continue to monitor. (7) DVT prophylaxis Current Visit: Yes Status: Acute Code(s): XWK2745 - SNOMED Code(s): 452802293 Comment: HSQ (8) Full code status Current Visit: Yes Status: Acute Code(s): Z78.9 - OTHER SPECIFIED HEALTH STATUS SNOMED Code(s): 448613142 Status and Disposition: inpatient. Dispo per surgery. Plan for discharge tomorrow.
[2018-01-15] MEDS: Omeprazole CAP* 20 MG PO SCH (16:17)
[2018-01-15] MEDS: CMCS Melatonin (NF) 3 MG TAB PO SCH (21:40)
[2018-01-15] MEDS: Hydrocortisone 1% CREAM* 30 GM TUBE TOPICAL PRN (21:52)
[2018-01-16] MEDS: metroNIDAZOLE IV 500 MG/100ML* 500 MG/100 ML BAG IVPB SCH ×2 (02:33→11:00)
[2018-01-16 03:22] VITALS: BP 123/66
[2018-01-16 05:48] LABS: EGFR Non-African American 93.8 (>60)
[2018-01-16] MEDS: Heparin VIAL(*) 5000 UNITS/ML VIAL (FIVE THOUSAND) SUBCUT SCH (06:09)
[2018-01-16] MEDS ORDERED: NS 0.9% 500 ML* 500 ML ONE (08:38)
[2018-01-16] MEDS: Piperacillin/Tazobactam 13.5 GM IV 24 hour continuous infusion IVPB SCH ×2 (08:47)
[2018-01-16] MEDS: FLUoxetine CAP* 20 MG PO SCH (08:51)
[2018-01-16] MEDS: Metoprolol Tartrate TAB* 25 MG PO SCH (08:51)
[2018-01-16] MEDS: amLODIPine TAB* 5 MG PO SCH (08:52)
[2018-01-16] MEDS: Omeprazole CAP* 20 MG PO SCH (08:53)
--- NOTE | 2018-01-16 11:25 | DS ---
CC: Dr. Clover Joshi; [facility] DISCHARGE SUMMARY: DATE OF ADMISSION: 01/09/18 DATE OF DISCHARGE: 01/16/18 HISTORY OF PRESENT ILLNESS: Ms. Cottrell is a 77-year-old female who was admitted with acute abdomen, and after workup in the emergency room including CAT scan and labs, she was taken to the operating room for a diagnostic laparoscopy, conversion to laparotomy and partial colectomy, colostomy (Jose Roberto 's type) procedure. The patient's postoperative course included a trip to the ICU. She was maintained on antibiotics and IV fluids. She was given medication for pain control. She showed signs of an ileus in the early postoperative period. Raza catheter was removed by postoperative day 2. We did consult the hospitalist service to assist in electrolyte abnormalities. The patient's diet was slowly advanced. She became more ambulatory. Again, maintained on antibiotics. Colostomy function was poor until approximately postoperative day 4, when she started having flatus and then followed by stool. She did receive 1 dose of Lasix on postoperative day 5, which showed good results and the patient improved overall with functional colostomy and no additional signs of sepsis. By postoperative day 7, the patient was ready for discharge. She was afebrile. Vital signs are stable. PHYSICAL EXAMINATION: On day of discharge, alert and oriented x3, in no apparent distress. Lungs: Clear to auscultation bilaterally. Abdomen: Soft, nondistended, nontender. Staple line intact without erythema. Colostomy pink and intact with stool and flatus. Extremities: Within normal limits. PLAN: Discharged home. No more antibiotics. The patient can go back on her home medications. She has a followup appointment at 10:15 on Saturday next week. We will see her and take her chetan out. This was all described to her. She understands she can contact to our office should there be any changes. [id number]/[facility] #: [id number] [facility]
--- NOTE | 2018-01-23 00:36 | OP ---
CC: Dr. Clover Joshi * DATE OF OPERATION: 01/09/18 - ROOM #331 DATE OF : 44 SURGEON: Jesus Grant MD GUIDE RAIL CLEANER: None. ANESTHESIOLOGIST: Dr. Vazquez. ANESTHESIA: General anesthesia. PRE-OP DIAGNOSIS: Acute abdomen. POST-OP DIAGNOSIS: Perforated diverticulitis with feculent peritonitis. OPERATIVE PROCEDURE: Diagnostic laparoscopy, exploratory laparotomy, partial colectomy, and end colostomy. ESTIMATED BLOOD LOSS: 150 cc. SPECIMENS: Sigmoid colon as well as cultures. FLUIDS: 2800 cc of lactated Ringer's. DRAINS: Raza catheter as well as an NG tube. DESCRIPTION OF PROCEDURE: The patient was identified in the preoperative area. She had been marked. Consent was signed. She was brought to the operating room and placed on the operating table in a supine position. Antibiotics were already on board. SCDs were placed on bilateral lower extremities. General anesthesia was induced. The patient's abdomen was prepped and draped in a standard surgical fashion. A time-out was performed. An infraumbilical incision was made. This was deepened down in the anterior fascia, which was elevated and a Veress needle inserted into the abdominal cavity, which was then allowed to insufflate to a pressure of 15 mmHg. Veress needle was removed and a 12-mm trocar inserted at the site. Laparoscope was inserted through this and there was evidence of brownish fluid above the liver and the spleen. Additional trocars were then placed in the following position, 5 -mm in the left upper quadrant and 5-mm in right upper quadrant. The table was placed in a reverse Trendelenburg. Stomach was identified. There was fluid over the spleen. Omentum was appeared normal at this area in the upper abdomen. Anterior aspect of the stomach appeared intact without any issues. This extended towards the duodenum, which was also equally clean. Attention was then turned towards the pelvis. The patient was then placed in a Trendelenburg position. Omentum was seen in the left lower quadrant with exudative tissue and at this point, I made a decision to perform a formal laparotomy. The trocar was removed. Incision was extended from the supraumbilical site around the umbilicus and into a lower midline. This was deepened down through all the layers of the anterior abdominal wall and we entered into the abdomen. Additional suction of feculent material was encountered. We did take a culture. We were then able to look deeper in the pelvis where a significant amount of additional fluid was removed. The distal descending colon starting into the sigmoid was notable for a small opening, as free perforation appeared to be the issue. Next, the self-retaining retractor was used to pack off the small bowel superiorly, as well as the omentum and transverse colon. The cecum appeared intact. The appendix was normal. This was also tucked into the right upper quadrant and right lateral site. This gave us good view of her sigmoid colon with the free perforation. There were diverticula along the site and we made the decision to perform a formal partial colectomy with colostomy, Jose Roberto's type procedure. A peritoneum was taken off the lateral aspect the diseased portion of the colon. This extended towards the white line of Toldt and we extended incision of this up towards the splenic flexure. The peritoneum overlying the mesentery of the sigmoid colon was then taken with the Bovie cautery right down to the superior rectum. This portion of the rectum and distal sigmoid appeared intact. We were able to bring this up and then do our incision, and I felt confident about the resection of the site at this area. Attention was then turned towards the descending colon. The colon was transected with a 60-mm ELLIE stapling device. We utilized the LigaSure, staying close to the colon and extended this down to the rectum, which was transected with a TA articulating 60-mm blue load stapler. We then passed off our specimen. It should be noted that I did place a silk suture at the opening to prevent any additional soilage. With the specimen out, we then copiously irrigated the abdomen with warm irrigation. We removed the Debra retractor to irrigate above the liver and spleen. Liver showed no evidence of lesions from any suspicious areas. Gallbladder was normal. Anterior stomach was normal. I did not enter into the lesser sac. After a copious irrigation, we turned our attention back to the descending colon. This appeared intact with good blood supply. A disk of skin was cut at the area of the left lower quadrant and we extended this down to the anterior fascia overlying the rectus muscle. This was incised. The rectus muscle was split and we brought the colon out through this incision. It laid without tension in the appropriate orientation. Next, small bowel was run again. There was no evidence of injury. It was dropped back into the abdomen along with the omentum overlying the midline incision site, which was reapproximated with interrupted #1 Vicryl sutures in a [id number] fashion. We irrigated the wound and then approximated the skin with skin chetan followed by sterile dressing. Next, the colostomy was matured in a standard fashion with 2-0 and 3-0 Vicryl sutures and a colostomy appliance applied to this area. The patient was woken up and transferred to the PACU in stable condition. [id number]/[facility] #: [id number] [facility]
== END 2018-01-16 13:59 | disposition home health service (06) | DRG 329 ==
LOC: ED 15:53 → OR 21:16 → ICU 01-09 03:40 → SSU 01-10 11:57
PROVIDERS: ADMIT Surgery; ATTEND Surgery
PROC: 0DTN0ZZ Resection of Sigmoid Colon, Open Approach (ICD-10-PCS; principal; 2018-01-09)
PROC: 0DJD4ZZ Inspection of Lower Intestinal Tract, Percutaneous Endoscopic Approach (ICD-10-PCS; 2018-01-09)
PROC: 0D1M0Z4 Bypass Descending Colon to Cutaneous, Open Approach (ICD-10-PCS; 2018-01-09)
DX: K57.20 Diverticulitis of large intestine with perforation and abscess without bleeding (principal); K59.00 Constipation, unspecified; F43.10 Post-traumatic stress disorder, unspecified; Z96.643 Presence of artificial hip joint, bilateral; I10 Essential (primary) hypertension; F32.9 Major depressive disorder, single episode, unspecified; A41.9 Sepsis, unspecified organism; K56.7 Ileus, unspecified; R11.0 Nausea; E87.6 Hypokalemia; E83.39 Other disorders of phosphorus metabolism; E83.42 Hypomagnesemia; R73.9 Hyperglycemia, unspecified; Z88.8 Allergy status to other drugs, medicaments and biological substances; Z86.11 Personal history of tuberculosis; Z82.49 Family history of ischemic heart disease and other diseases of the circulatory system; Z83.3 Family history of diabetes mellitus; Z72.89 Other problems related to lifestyle; Z87.891 Personal history of nicotine dependence; Z95.2 Presence of prosthetic heart valve
CPT/HCPCS: 36415; 71045; 74177; 80048; 80053; 81003; 81015; 83605; 83690; 83735; 84100; 85025; 85610; 85730; 86140; 87040; 87086; 87641; 88112; 88307; 93005; 94760; 99285; A9270-GY; C1776; J0330; J1100; J1170; J1644; J1885; J1940; J2405; J2543; J2704; J2765; J3010; J3475; J3480; J3490; Q9967

== ENCOUNTER 2018-10-22 05:55 | Inpatient (IN) | payer MEDICARE, OTHER ==
--- NOTE | 2018-10-07 18:18 | HP ---
CC: Dr. Mina Guzman; Dr. Quintero * PREOPERATIVE HISTORY AND PHYSICAL: DATE OF ADMISSION: 10/22/18 This patient is scheduled for AA admission by Dr. Grant on 10/22/18. DATE OF EXAMINATION: 10/07/18. ATTENDING PHYSICIAN: Dr. Jesus Grant * (dictated by Dilia Rowell NP). CHIEF COMPLAINT: Ventral incisional hernia and reversal of colostomy. HISTORY OF PRESENT ILLNESS: The patient is a 78-year-old female known to Dr. Grant status post urgent Jose Roberto's procedure for perforated diverticulitis in December 2017. She was seen in our office for followup and plans were made for reversal of colostomy and repair of ventral incisional hernia with biologic mesh at the same setting. She is doing very well overall, but she does describe an increase in the size of the abdominal wall incisional hernia and at times she has to push on this to cough. She denies any obstructive symptoms or abdominal pain. She underwent colonoscopy both through the anus and also through the ostomy; there were some diverticula in the distal sigmoid colon; the colonoscopy through the ostomy was within normal limits without lesion. She also underwent a CAT scan of the abdomen and pelvis and those images were reviewed by Dr. Grant and revealed an incisional ventral hernia; no evidence of parastomal hernia; the hernia is approximately 4.5 cm and contains colon. Dr. Grant reviewed the above findings with the patient and has recommended reversal of colostomy and at the same setting, repair of the ventral abdominal wall incisional hernia with biologic mesh. Dr. Grant described the nature of the surgical procedure, the relevant risks and benefits and today I have reviewed the typical postoperative hospitalization and expected recovery. The patient has had a chance to ask questions and stated that she understands the information and is satisfied with the answers given to her questions. She will sign surgical consent on the day of surgery. She was given a bowel cleansing prep to take on the day before surgery consisting of a clear liquid diet, CoLyte laxative, neomycin and metronidazole tablets. She has been cleared from Cardiology to proceed with the surgery. PAST MEDICAL HISTORY: Aortic stenosis, hypertension, hyperlipidemia, and osteoporosis. PAST SURGICAL HISTORY: Urgent Jose Roberto's procedure for perforated diverticulitis in December [address] Grant; aortic valve replacement 2017 at [facility] with simultaneous repair of ascending aortic aneurysm with a graft; bilateral hip surgery. MEDICATIONS: 1. Norvasc 5 mg p.o. daily. 2. Fluoxetine 40 mg p.o. daily. 3. Atenolol 25 mg one-half tablet daily. 4. Aspirin 325 mg daily and she will hold this for 5 days preoperatively. She also takes the following supplements: 1. Glucosamine 500 mg daily. 2. Vitamin D3 daily. 3. Vitamin B complex daily. ALLERGIES: MIDAZOLAM, the patient states she was given MIDAZOLAM at an outside facility prior to closed reduction of hip dislocation and that immediately after reduction of the hip she had to be cardioverted. She also reports an allergy to HOSPITAL LINENS and states that with hospitalization in December 2017 she developed rash and itching on her back. FAMILY HISTORY: Father had history of diabetes, cancer and heart disease. No known anesthesia complications, bleeding tendencies or clotting disorders. SOCIAL HISTORY: She is and a retired school psychologist; she is a former smoker. She drinks on average 7 glasses of wine per week. REVIEW OF SYSTEMS: Constitutional: No fevers, chills, excessive fatigue or weight loss. Endocrine: No diabetes or thyroid disease. Respiratory: No exertional shortness of breath. Cardiovascular: No anginal chest pain or palpitations. No leg swelling or claudication; she was cleared from Cardiology at [facility] to proceed with the upcoming surgery; please refer to the attached note dated 09/03/[address] Russell. The patient underwent TONI on 10/03/17 and her aortic valve was functioning well without leak; ejection fraction was 55 % to 60%. She is able to exercise on a NordicTrack 3 times a week for 30 minutes without chest pain or exertional shortness of breath. Gastrointestinal : No abdominal pain. The ostomy has been functioning well; she denies any nausea or vomiting and has a good appetite. Genitourinary: No dysuria or frequency. Musculoskeletal: Occasional back pain. Negative for falls and joint pain. Skin: Negative for itching and rash. Neurologic: Negative for dizziness, seizures, loss of consciousness or headaches. General: No history of deep vein thrombosis or pulmonary embolism; no anesthesia complications and she has never received a blood transfusion. PHYSICAL EXAMINATION GENERAL SURVEY: The patient is a 78-year-old female, well developed, well nourished, in no acute distress. VITAL SIGNS: Height 64.5 inches, weight 145 pounds, body mass index 24.5, blood pressure 118/72, pulse 78 and regular, respiratory rate 18, temperature 97.1 tympanic. HEENT: Benign. NECK: Supple. No cervical lymphadenopathy. No carotid bruits. Trachea midline. LUNGS: Breath sounds bilaterally clear and equal. HEART: Regular rate and rhythm. No murmurs or rubs appreciated ABDOMEN: Active bowel sounds, soft and nondistended. Ostomy located in the left mid abdomen with a pink stoma and gas in the bag. Midline incision with large incisional hernia with reducible contents. Nontender. PELVIC AND RECTAL EXAMS: Deferred. EXTREMITIES: Warm without edema or skin ulceration. NEUROLOGIC: Alert and oriented x3, steady gait. SKIN: Warm, dry, intact. IMPRESSION: 1. Need for reversal of colostomy. 2. Ventral incisional hernia. PLAN: AA admission to Dr. Grant's service on 10/22/18 for reversal of colostomy and repair of ventral incisional hernia with biologic mesh. CAMILLA ROWELL NP [id number]/[facility] #: [id number] [facility]
[~2018-10-22 05:55] MED LIST: Buffered Lidocaine 1% SYRIN* 1 ML/SYRINGE INTRADERM ONE; ERTApenem(*) 1 GM in NS 0.9% 50 ML* 50 ML IVPB SCH
--- OUTSIDE RECORDS SUMMARY | 2018-10-22 05:58 | XMS REPORT | Continuity of Care Document ---
:1940 External Reference #:[id number] Author Name Olga Felix Care Team Providers Name Role Phone Jesus Grant MD, [facility] Care Team Information Hearing Therapist Unavailable Payers Type Date Identification Numbers Payment Provider Subscriber Policy Number: [id number] Medicare Radha Cottrell PayID: [id number] [address] [place] [address] Policy Number: [id number] Health Options Program Radha Cottrell Group Number: [id number] [address] PayID: [id number] [place] [address] Advance Directives Description No Information Available Problems Description No Information Family History Description No Information Available Social History Type Date Description Comments Sex Unknown Marital Status Occupation Retired Tobacco Use Start: Unknown End: Unknown Patient is a former smoker Smoking Status Reviewed: 10/07/18 Patient is a former smoker Allergies, Adverse Reactions, Alerts Date Description Reaction Status Severity Comments 01/17/2018 Midazolam decreased respirations Active Medications Medication Date Status Form Strength Qnty SIG Indications Ordering Provider Mehreen With 10/07/ Active Solution 240gm 4000ml take as Dilia Flavor Packs 2019 Rec directed B. on the day [place], before ECHOCARDIOGRAPHER surgery Neomycin 10/07/ Active Tablets 500mg 6tabs 2 tabs at Dilia Sulfate 2019 1pm and B. 7pm on the [place], day before ECHOCARDIOGRAPHER surgery and 2 tabs at 6 am on the day of surgery Metronidazole 10/07/ Active Tablets 500mg 3tabs 1 tablet Dilia 2019 by mouth B. at 1pm and [place], 7pm on the ECHOCARDIOGRAPHER day before surgery and 1 tablet at 6 am on the day of surgery Norvasc / Active Tablets 5mg 1 by mouth Unknown 0000 every day Glucosamine 00/ Active Capsules 500mg 1 tab Unknown 0000 daily Fluoxetine HCL / Active Capsules 40mg 1 by mouth Unknown 0000 every day Atenolol / Active Tablets 25mg Take 1/2 Unknown 0000 Tablet By Mouth Every Day Vitamin D 00/ Active Tablets 1 every Unknown (Cholecalcifero 0000 day l) Aspirin 00/ Active Tablets 325mg take 1 by Unknown 0000 mouth daily Vitamin B / Active Tablets 1 by mouth Unknown Complex 0000 every day Metoprolol 00/ Hx Tablets ER 25mg 1 by mouth Unknown Succinate ER 0000 24HR every day Immunizations Description No Information Available Vital Signs Date Vital Result Comment 10/07/2018 1:01pm Height 64.5 inches 5'4.50" Weight 145.00 lb Heart Rate 78 /min BP Systolic Sitting 118 mmHg BP Diastolic Sitting 72 mmHg Respiratory Rate 18 /min Body Temperature 97.1 F BMI (Body Mass Index) 24.5 kg/m2 08/04/2018 9:58am Heart Rate 76 /min Respiratory Rate 16 /min Body Temperature 97.2 F 07/28/2018 9:55am Height 64.5 inches 5'4.50" Weight 144.00 lb Heart Rate 84 /min BP Systolic Sitting 124 mmHg BP Diastolic Sitting 78 mmHg Respiratory Rate 18 /min Body Temperature 97.4 F BMI (Body Mass Index) 24.3 kg/m2 01/20/2018 10:25am Height 64.5 inches 5'4.50" Weight 140.00 lb Heart Rate 72 /min BP Systolic 122 mmHg BP Diastolic 74 mmHg Respiratory Rate 16 /min Body Temperature 96.9 F BMI (Body Mass Index) 23.7 kg/m2 Results Test Date Facility Test Result H/L Range Note Laboratory test 07/29/2018 [facility] Blood Urea 15 mg/dL N 6- [address] [place] [address] [phone] Creatinine 07/29/2018 [facility] Creatinine 0.86 mg/dL N 0.51- 0.[address] [place] [address] [phone] Egfr Non- 64.2 >60 Egfr 77.6 >60 1 Laboratory test 01/09/2018 [facility] Surgical SEE RESULT [address] Pathology BELOW [place], [place] [id number] [phone] Laboratory test 01/08/2018 [facility] Cytology Non-Dinkey Operator SEE RESULT [address] [place] [address] [phone] 1 Because ethnic data is not always readily available, this report includes an eGFR for both -Americans and non- Americans. The National Kidney Disease Education Program (NKDEP) does not endorse the use of the MDRD equation for patients that are not between the ages of 18 and 70, are , have extremes of body size, muscle mass, or nutritional status, or are non- or non-. According to the National Kidney Foundation, irrespective of diagnosis, the stage of the disease is based on the level of kidney function: Stage Description GFR(mL/min/1.73 m(2)) 1 Kidney damage with normal or decreased GFR 90 2 Kidney damage with mild decrease in GFR 60-89 3 Moderate decrease in GFR 30-59 4 Severe decrease in GFR 15-29 5 Kidney failure <15 (or dialysis) 2 SEE RESULT BELOW Name: RADHA COTTRELL : [address]: Tori Anguiano MD Acct: [id number] Unit: [id number] AGE: 77 Location: [facility] [address] Re01/09/18 SEX: F Status: ADM IN SPEC: [id number] MORIAH: 01/09/18-[address] [facility] [address]: Jesus Grant MD REQ: [id number] RECD: 01/09/18 STATUS: SOUT _ ORDERED: LEVEL 5 FINAL DIAGNOSIS Colon, sigmoid, partial resection: -- Diverticulosis with acute diverticulitis with perforation into pericolic adipose tissue and associated acute serositis. -- No evidence of neoplasia identified. -- 8 lymph nodes with no tumor seen (0/8). PRE-OPERATIVE DIAGNOSIS Acute abdomen GROSS DESCRIPTION The specimen is received in formalin labeled, Sigmoid Colon, and consists of a 15.0 x 3.5 cm unoriented portion of intestinal tissue with abundant adherent yellow-alcantara fat. One margin is stapled while the opposing is open. The serosa is predominantly smooth and erythematous ghosh-red with rare focal fibromembranous adhesions. There is scant possible ghosh-alcantara fibropurulent exudate and adherent suture material, 0.3 cm from the stapled margin. Sectioning reveals an uncomplicated diverticulum. Additionally there are a few markedly erythematous diverticula throughout the specimen. The mucosa is glistening ghosh-pink with normal folds. Within the adherent fat there are a few probable lymph nodes ranging from 0.3 cm to 0.8 cm in greatest dimension. [employer] sections are submitted in cassettes A through H as follows: A-open margin, B and C-stapled margin to include diverticulum, D through F-erythematous diverticula, G-multiple whole lymph nodes and H-two differentially inked, trisected lymph nodes. Signed (signature on file) Jared Hamm MD 1018 END OF REPORT DEPARTMENT OF PATHOLOGY, [address] [place] [address] Jared Hamm M.D. Director LOIS # [id number] 3 SEE RESULT BELOW Name: RADHA COTTRELL : [address]: Jesus Grant MD Acct: [id number] Unit: [id number] AGE: 77 Location: ICU [id number] Re01/09/18 SEX: F Status: ADM IN SPEC: [id number] MORIAH: 01/08/[address] [facility] [address]: Jesus Grant MD REQ: [id number] RECD: 01/09/18 STATUS: SOUT _ ORDERED: NG THIN LAYER FINAL DIAGNOSIS Peritoneal fluid: -- Negative for malignant cells. -- Acute inflammation. 1. PERITONEAL GROSS DESCRIPTION 15 mls of red fluid with floaters. Signed (signature on file) Jared Hamm MD 1555 END OF REPORT DEPARTMENT OF PATHOLOGY, [address], [place], [place] [address] Jared Hamm M.D. Director [facility] # [id number] Procedures Date Code Description Status 05/30/2018 43546849 Colonoscopy Completed 01/11/2018 12078 EKG, Interpretation Only Completed 01/09/2018 82515 Colectomy Partial W/End Colostomy & Close Distal Completed Segment Encounters Type Date Location Provider Dx Diagnosis Office Visit 08/04/2018 Surgical Jesus Grant, K63.1 Perforation of 10:00a [facility], FACS intestine (nontraumatic) K43.2 Incisional hernia without obstruction or gangrene Office Visit 07/28/2018 10:00a Surgical Jesus Rocha.1 Perforation of [facility] MD, intestine FACS (nontraumatic) K43.2 Incisional hernia without obstruction or gangrene Office Visit 01/15/2018 [facility] Felix K63.1 Perforation of 9:55a flavio Smallwood PA intestine Hospitalists (nontraumatic) I35.9 Nonrheumatic aortic valve disorder, unspecified F32.89 Other specified depressive episodes E83.42 Hypomagnesemia Office Visit 01/14/2018 [facility] Felix K63.1 Perforation of 9:54a flavio Smallwood PA intestine Hospitalists (nontraumatic) I35.9 Nonrheumatic aortic valve disorder, unspecified F32.89 Other specified depressive episodes E83.42 Hypomagnesemia Office Visit 01/13/2018 [facility] Felix K63.1 Perforation of 9:53a flavio Smallwood PA intestine Hospitalists (nontraumatic) I35.9 Nonrheumatic aortic valve disorder, unspecified F32.89 Other specified depressive episodes E83.42 Hypomagnesemia Office Visit 01/12/2018 [facility] Felix Miranda63.1 Perforation of 9:52a flavio Smallwood PA intestine Hospitalists (nontraumatic) I35.9 Nonrheumatic aortic valve disorder, unspecified F32.89 Other specified depressive episodes E83.42 Hypomagnesemia Office Visit 01/11/2018 [facility] Felix K63.1 Perforation of 9:41a [facility] [place] intestine Hospitalists (nontraumatic) I35.9 Nonrheumatic aortic valve disorder, unspecified F32.89 Other specified depressive episodes E83.42 Hypomagnesemia Office Visit 01/10/2018 [facility] K63.1 Perforation of 9:40a Assoc,flavio Uriostegui D.O. intestine Hospitalists (nontraumatic) I35.9 Nonrheumatic aortic valve disorder, unspecified F32.89 Other specified depressive episodes E83.42 Hypomagnesemia Office Visit 01/09/2018 [facility] K63.1 Perforation of 9:36a Assoc,flavio Jerome, intestine Hospitalists ECHOCARDIOGRAPHER (nontraumatic) I35.9 Nonrheumatic aortic valve disorder, unspecified F32.89 Other specified depressive episodes E83.42 Hypomagnesemia Office Visit 01/08/2018 7:00a [facility] Jesus Grant, R10.0 Acute abdomen Of [facility] , FACS Plan of Treatment Future Appointment(s):10/22/2018 7:30 am - Oneida Braun MD at [facility]10/22/2018 7:30 am - Jesus Grant MD, FACS at [facility]10/07/2018 - Dilia Phillips, HAROONK63.1 Perforation of intestine (nontraumatic)Follow up:[facility] Incisional hernia without obstruction or gangrene
[2018-10-22] MEDS ORDERED: Dexamethasone IV* 4 MG/ML 1 ML (4 MG) IV SLOW PU ONE (06:00)
[2018-10-22] MEDS ORDERED: Lactated Ringers 1000 ML Bag* 1,000 ML IV SCH (06:00)
[2018-10-22] MEDS ORDERED: Famotidine IV* 10 MG/ML 2 ML (20 mg) IV ONE (06:00)
[2018-10-22] MEDS ORDERED: Famotidine IV* 10 MG/ML 2 ML (20 mg) ONE (06:49)
[2018-10-22] MEDS ORDERED: Heparin VIAL(*) 5000 UNITS/ML VIAL (FIVE THOUSAND) ONE (06:49)
[2018-10-22] MEDS ORDERED: Dexamethasone IV* 4 MG/ML 1 ML (4 MG) ONE (06:50)
[2018-10-22] MEDS ORDERED: Ondansetron INJ* 2 MG/ML VIAL ONE (07:19)
[2018-10-22] MEDS ORDERED: Propofol* 10 MG/ML 20 ML BTL ONE (07:19)
[2018-10-22] MEDS ORDERED: fentaNYL* 50 MCG/ML 5 ML VIAL (250 MCG VIAL) ONE (07:19)
[2018-10-22] MEDS ORDERED: Rocuronium* 10 MG/ML VIAL ONE ×3 (07:19→08:58)
[2018-10-22] MEDS ORDERED: Ketorolac INJ* 30 MG/ML 1 ML VIAL ONE (07:19)
[2018-10-22] MEDS ORDERED: EPHEDrine (Pressors)* 50 MG/ML VIAL ONE (07:19)
[2018-10-22] MEDS ORDERED: Sugammadex * 200 MG/2 ML VIAL IV PUSH ONE (07:28)
[2018-10-22] MEDS ORDERED: fentaNYL* 50 MCG/ML 2 ML VIAL (100 MCG VIAL) ONE ×2 (08:21→09:27)
[2018-10-22] MEDS ORDERED: Scopolamine 1.5 mg* PATCH TRANSDERM PRN (08:34)
[2018-10-22] MEDS ORDERED: Ondansetron INJ* 2 MG/ML VIAL IV PRN (08:34)
[2018-10-22] MEDS ORDERED: fentaNYL* 50 MCG/ML 2 ML VIAL (100 MCG VIAL) IV PRN (08:34)
[2018-10-22] MEDS ORDERED: Naloxone* 0.4 MG/ML 1 ML VIAL IV PRN (08:34)
[2018-10-22] MEDS ORDERED: DiMENhydriNATE IV* 50 MG/ML VIAL IV PUSH PRN (08:34)
[2018-10-22] MEDS ORDERED: Glucagon* 1 MG VIAL ONE (09:44)
[2018-10-22] MEDS ORDERED: Bupivacaine 0.25% SDV PF* 10 ML VIAL INJ ONE (11:42)
--- NOTE | 2018-10-22 12:31 | BRIEFOPN ---
Brief Operative Note - Surgery Procedures: Procedures Pre-OP Diagnoses: Colostomy, ventral incisional hernia Post-op Diagnosis: same Procedure: Laparoscopic reversal of colostomy, repair of ventral hernia with biologic mesh Surgeon: Juanita Asst: Kade Anesthesia: SILVIA Kuo EBL: <100 IVF: crystalloid Specimen: colostomy, hernia sac Drains: # 10 TARIQ in subQ space NPWT paz
[2018-10-22] MEDS ORDERED: Naloxone* 0.4 MG/ML 1 ML VIAL IV PUSH PRN (12:39)
[2018-10-22] MEDS ORDERED: HYDROmorphone INJ1* 1 MG/ML SYRINGE ONE (12:54)
[2018-10-22] MEDS ORDERED: DiMENhydriNATE IV* 50 MG/ML VIAL ONE (12:55)
[2018-10-22] MEDS: HYDROmorphone INJ1* 1 MG/ML SYRINGE IV PRN ×5 (12:58→13:45)
[2018-10-22] MEDS ORDERED: Morphine PCA ADULT* 5 MG/ML 30 ML PCA SCH (13:00)
[2018-10-22] MEDS ORDERED: Morphine PCA ADULT* 5 MG/ML 30 ML ONE (14:33)
[2018-10-22] MEDS ORDERED: Famotidine IV * 20 MG in NS 0.9% 100 ML* 100 ML IVPB SCH (21:00)
[2018-10-22] MEDS: Famotidine IV* 10 MG/ML 2 ML (20 mg) IV SLOW PU SCH (21:06)
[2018-10-22] MEDS: Lactated Ringers 1000 ML Bag* 1,000 ML IV SCH (23:01)
--- NOTE | 2018-10-23 00:49 | OP ---
CC: Dr. Mina Guzman * DATE OF OPERATION: 10/22/18 - ROOM #340 DATE OF : 44 SURGEON: Jesus Grant MD BUSINESS SUPPORT PROFESSIONAL: Oneida Braun MD ANESTHESIOLOGIST: Dr. uKo. ANESTHESIA: General. PRE-OPERATIVE DIAGNOSES: Colostomy and ventral incisional hernia. POST-OPERATIVE DIAGNOSES: Colostomy and ventral incisional hernia. OPERATIVE PROCEDURE: Exploratory laparotomy, reversal of colostomy and repair of ventral hernia with Biologic mesh. BLOOD LOSS: Less than 100 cc. IV FLUIDS: 2900 cc of crystalloid fluid given. SPECIMEN: Colostomy, portion of distal sigmoid colon and hernia sac. DRAINS: A #10 TARIQ drain left in the subcutaneous space as well as negative- pressure wound therapy dressing on Prevena and Raza catheter. DESCRIPTION OF PROCEDURE: Ms. Cottrell is a 78-year-old female who is eight months status post urgent Jose Roberto's procedure for perforated diverticulitis. The patient presented for reversal of colostomy and for repair of incisional ventral hernia. She was identified in the preoperative area, marked. Consent was signed. I discussed the case with her again. She was taken to the operating room, placed on the operating table supine position. Preoperative antibiotics given, sequential devices were placed on the bilateral lower extremities. General anesthesia was induced. The patient was placed in the modified lithotomy position. The rectum was cleared out manually of any old stool. We then inserted a Raza catheter and cleared out with the Betadine mix prep from below. A Raza catheter had been placed. Next, the patient's abdomen was prepped and draped in a standard surgical fashion and time-out was performed. It should be noted prior to the prep we did suture the colostomy closed with a running silk suture. A #10 blade was utilized to incise the skin above the previous incision site and extended down to the pubic symphysis. This was deepened down to the anterior fascia at the superior aspect. This was incised and entry into the abdominal cavity was made. We then opened up the anterior fascia and into the hernia sac. There were no adhesions except a small amount of omentum adhered to the inside of the sac, it was taken down with ease. We had the complete incision open and there was no free fluid. Small bowel appeared intact. The omentum was then lifted up and retracted to take a look at the pelvis. The patient was placed in a slight Trendelenburg positioning. Small bowel was reflected superiorly and we could identify the rectal stump that appeared more of a sigmoid stump that had a Prolene suture placed. We then turned our attention back to the opening and I preferred to start flaps at this site and we started on the right side, identifying fascia both inferiorly and superiorly through our incision site and following this laterally throughout the hernia. The defect itself was approximately 7 x 4 cm. We were able to make flaps along the anterior fascia laterally and identify sac and ligate portion of the sac off. I did take the umbilical sac off of the anterior wall as well. Feeling good about the fascial edges, I then proceeded with our planned surgery. The omentum again was lysed sharply off of the sigmoid colon as it headed towards the colostomy. The sigmoid colon entering the colostomy was then isolated. I took the mesentery off of this with LigaSure device and retracted the sigmoid colon down as much as we can and then placed a 16-mm blue ELLIE stapler across this. This freed up this colon that we would end up meeting with the rectum. Next, the white line of Toldt was addressed. The portion of this had already been incised. We continued the dissection up towards the splenic flexure taking down the splenic flexure in its entirety. The descending colon now had a good length on it and could easily go down towards the pelvis. Attention was then turned towards the pelvis. We identified this rectal stump and cleared off the edge and debrided it. I made the decision to place a new TA staple line across this after clearing off some of the mesentery and isolating just the stump. This was done with the TA 60 green load. Next, we protected the wound and then I used a pursestring device to place on the distal colon and with a 3-0 Buzz needle placed a pursestring suture. We removed this portion of the colon and entry opened into the descending colon. I could not advance even a 25 sizer through this. I believe I could place my finger through this, but it appeared somewhat spasmed and at this point, we gave a 0.5 mg of glucagon. This did help and we were able to place the 25, but I did not attempt 28. Therefore, 25 green load EEA stapler was opened up, the anvil was inserted and the pursestring suture tied in the appropriate fashion. Next, from below, the 25 sizer was then inserted. This was somewhat difficult making a turn and at this point I felt that we had additional proximal rectum and sigmoid that made it somewhat difficult. For this reason, we then took additional stump with another TA 60 green load stapler, but first I used cautery to take the peritoneum over the rectum and this gave us both an idea of where the rectum stood and also how we would perform the anastomosis. Additional, approximately 2 cm of the proximal stump, was then taken with the TA stapler. Mesentery was taken with the LigaSure device taking care to hug the stump itself. I did not identify ureters during this process, but we were little away overlying the sacral promontory at this point. Next, the sizer was then reinserted and at this time it coursed the rectum easier and we then placed a 25-mm EA stapler in and made it this in the appropriate orientation. The stapling was fired and then next the bowel clamped proximally. We did the air bubble test and was negative and the anastomosis reviewed showed proper orientation without any kinking. We allowed the air to evacuate and we also turned to the doughnuts in the EA stapler and they were completely intact. We suctioned the water out of the pelvis and reviewed the abdomen around the small bowel, placed in the proper orientation and brought the omentum and draped this over midline incision. Next, the flaps that we had previously started were extended laterally in the appropriate fashion, taking the fascia and grasping this medially and cauterizing above taking care to maintain hemostasis. We similarly did it on the left side where the colostomy was, but I stayed out of the plane of the colostomy itself as I felt we did not need to release too much. Next, releasing incisions were made on the right side, taking it from pubis up to the costal margin staying lateral to the rectus muscle. I also performed a similar relaxing incision but only in the inferior aspect on the left side. The edges of the fascia came together with almost no tension. Next, we turned our attention to the former colostomy site. The skin was incised with a scalpel. We deepened this down through the subcutaneous tissue removing the colostomy in its entirety and passing it off the specimen. The wound was then irrigated and the fascial edges cleared up and reapproximated with interrupted #1 Vicryl stitches. Next, the midline incision was closed with #1 PDS loop suture. These were started inferiorly and superiorly and tied in the middle. Next, a Bard Biologic mesh 10 x 15 cm was opened up and this was placed as an onlay. I sutured the umbilical skin through this site with a 2-0 Vicryl stitch and tacked it with interrupted Prolene sutures. Wound was then irrigated. Hemostasis was achieved. The skin incisions were reapproximated with skin chetan as was the former colostomy site. I did place a #10 TARIQ drain in the subcutaneous space prior to the closure. This was placed through a separate stab incision at the right groin area. Next , we placed a Prevena VAC dressing over the closed wound itself. The patient tolerated the procedure well, was awoken up in the OR and transferred to the PACU in stable condition. [id number]/[facility] #: [id number] ALEXANDREA
[2018-10-23 06:15] LABS: ABS Basophils 0 10^3/ul (0-0.2); ABS Eosinophils 0 10^3/ul (0-0.6); ABS Monocytes 0.9 10^3/ul (0-0.8); ABS Neutrophils 10.5 10^3/ul (1.5-7.7); ABS Nucleated RBC 0 10^3/ul; Eosinophil % 0 %; Hematocrit 34 % (35-47); Hemoglobin 11.6 g/dl (12.0-16.0); Lymphocyte % 7.9 %; Mean Corpuscular HGB Conc 35 g/dl (31-36); Mean Corpuscular Hemoglobin 31 pg (27-31); Mean Corpuscular Volume 89 fL (80-97); Mean Platelet Volume 7.7 fL (7.4-10.4); Nucleated Red Blood Cells % 0; Platelet Count 197 10^3/ul (150-450); Red Blood Count 3.77 10^6/ul (4.00-5.40); Red Cell Distribution Width 14 % (10.5-15); White Blood Count 12.4 10^3/ul (3.5-10.8)
[2018-10-23 06:34] LABS: BUN/Creatinine Ratio 20.6 (8-20); Calcium 8.5 mg/dL (8.6-10.3); EGFR African American 101.8 (>60); EGFR Non-African American 84.1 (>60); Magnesium 1.5 mg/dL (1.9-2.7); Phosphorus 2.7 mg/dL (2.5-5.0); Potassium 3.9 mmol/L (3.5-5.0)
[2018-10-23] MEDS: Lactated Ringers 1000 ML Bag* 1,000 ML IV SCH ×3 (07:02→23:05)
[2018-10-23] MEDS: Heparin VIAL(*) 5000 UNITS/ML VIAL (FIVE THOUSAND) SUBCUT SCH ×3 (08:06→21:42)
--- NOTE | 2018-10-23 08:51 | PN ---
Progress Note - Progress Note Date of Service: 10/23/18 SOAP: Subjective: Pt seen and examined. sleeping ok, no nausea until we walked around. Procedure discussed with her Objective: Temp Pulse Resp BP Pulse Ox 99.2 F 79 18 116/58 96 10/23/18 07:44 10/23/18 07:44 10/23/18 08:00 10/23/18 07:44 10/23/18 07:44 Intake & Output 10/22/18 10/23/18 10/23/18 22:59 06:59 14:59 Intake Total 240 1000 Output Total 590 395 Balance -350 605 a and o x3 decre BS abdo: soft/ ND/ tender TARIQ serosang Proveena in place no calf tenderness labs noted Assessment: POD1 reversal of colostomy, incisional hernia repair Plan: anti nausea meds continue clears only OOB DT Gi proph replete Mg
[2018-10-23] MEDS ORDERED: Metoclopramide IV* 5 MG/ML 2 ML VIAL IV PRN (08:52)
[2018-10-23] MEDS ORDERED: Magnesium Sulfate 1 GM IV* 1 GM/100 ML BAG IV ONE (08:52)
[2018-10-23] MEDS ORDERED: Potassium Phosphate IV* 15 MMOLE in NS 0.9% 250 ML* 250 ML IVPB ONE (09:45)
[2018-10-23] MEDS: Famotidine IV* 10 MG/ML 2 ML (20 mg) IV SLOW PU SCH ×2 (09:48→21:41)
[2018-10-23] MEDS: amLODIPine TAB* 5 MG PO SCH (09:49)
[2018-10-23] MEDS: FLUoxetine CAP* 20 MG PO SCH (09:49)
[2018-10-23] MEDS: Atenolol TAB* 25 MG PO SCH (09:49)
[2018-10-23] MEDS: Ketorolac INJ* 15 MG/ML 1 ML VIAL IV PUSH PRN ×2 (11:31→17:35)
[2018-10-24] MEDS: Ketorolac INJ* 15 MG/ML 1 ML VIAL IV PUSH PRN ×3 (00:08→18:13)
[2018-10-24] MEDS: Heparin VIAL(*) 5000 UNITS/ML VIAL (FIVE THOUSAND) SUBCUT SCH ×3 (05:58→21:30)
[2018-10-24] MEDS: Lactated Ringers 1000 ML Bag* 1,000 ML IV SCH (07:26)
[2018-10-24] MEDS ORDERED: Morphine INJ* 2 MG/ML 1 ML SYRINGE (TWO MG - NEW SYRINGE VERSION) IV PRN (08:53)
[2018-10-24] MEDS ORDERED: oxyCODONE/Acetamin 5/325 MG* TAB PO PRN (08:53)
[2018-10-24] MEDS: amLODIPine TAB* 5 MG PO SCH (09:36)
[2018-10-24] MEDS: Famotidine TAB* 20 MG PO SCH ×3 (09:36→21:42)
[2018-10-24] MEDS: Atenolol TAB* 25 MG PO SCH (09:37)
[2018-10-24] MEDS: FLUoxetine CAP* 20 MG PO SCH (09:37)
[2018-10-24] MEDS: D5W 1/2 NS KCl 20 Meq 1000 ML* 1,000 ML IV SCH (09:38)
--- NOTE | 2018-10-24 10:11 | PN ---
Progress Note - Progress Note Date of Service: 10/24/18 SOAP: Subjective: Pt seen and examined. feeling better today. No chills, no nausea, some flatus Objective: Temp Pulse Resp BP Pulse Ox 98.1 F 72 18 120/61 98 10/24/18 08:05 10/24/18 08:05 10/24/18 08:05 10/24/18 08:05 10/24/18 08:05 Intake & Output 10/23/18 10/24/18 10/24/18 22:59 06:59 14:59 Intake Total 0 1664 1255 Output Total 700 815 300 Balance -700 849 955 O2sat 98 on 2L, 89-93 on ra a and o x3, nad lungs crackles b/l abdo: soft/ ND/ min tenderness TARIQ serosang vac dressing intact no ext edema path reviewed Assessment: POD 2 reversal colostomy, hernia repair Plan: decre IVF, pulm toilet advance diet pain control gi, dv prop
--- NOTE | 2018-10-24 12:23 | PN ---
Progress Note - Progress Note Date of Service: 10/24/18 SOAP: Subjective: [Pt reports 1/10 pain at a baseline primarily around her incision and lower abdomen. She states the pain is increased to a 2/10 pain with movement and coughing. She is currently on 1.5L of oxygen via nasal cannula due to minor SOB. She is compliant with her incentive spirometer. She states she has been up and walking around the unit both yesterday and today with no complications. + flatus today, no bowel movements at this time. She endorses feelings of nausea, which is under control with Reglan. Pt has no issues with urination. Pt denies fever, chills, CP, SOB, cough, troubles with urination, trouble sleeping, tenderness of the calves. No complaints at this time.] Objective: [ Vital Signs Temp 98.1 F 10/24/18 12:07 Pulse 61 10/24/18 12:07 Resp 16 10/24/18 12:07 BP 119/63 10/24/18 12:07 Pulse Ox 100 10/24/18 12:07 Intake & Output 10/23/18 10/24/18 10/24/18 18:59 06:59 18:59 Intake Total 330 1664 1255 Output Total 1130 1115 300 Balance -800 549 955 Intake: IV Fluids 1424 1240 LR 1424 1240 Oral 330 240 15 Output: TARIQ #1 30 15 Urine 700 1100 300 Raza 400 General: Pt is resting and reading on her hospital bed. She has no signs of acute distress. Heart: S1, S2. RRR. No M/R/G Lungs: Lungs are clear to auscultation throughout. Pt on 1.5L oxygen via nasal cannula. Abdomen: Abdomen is soft and not distended. Prevena wound vac is in place and functioning as intended. TARIQ drain is in place and contains sanguineous thin liquid. Dressing over surgical incisions are clean, dry and intact. No signs of wound infection are noted. Auscultation reveals normoactive bowel sounds. Palpation reveals expected tenderness around her incisions and in the abdomen. Extremities: No tenderness or edema noted to the lower extremities.] Assessment: [78 Female POD 2 REversal of colostomy and ventral hernia repair.] Plan: [Per Dr. Grant: -Decrease IVF and pulmonary toilet -Advance diet today -Continue pain control -Continue to encourage ambulation] <Mick Puente - Last Filed: 10/24/18 12:08> - Progress Note SOAP: I have read and agree withthe above excellent note. <Jesus Grant - Last Filed: 10/25/18 08:08>
[2018-10-25] MEDS: Ketorolac INJ* 15 MG/ML 1 ML VIAL IV PUSH PRN ×4 (00:22→22:09)
[2018-10-25] MEDS: D5W 1/2 NS KCl 20 Meq 1000 ML* 1,000 ML IV SCH (05:38)
[2018-10-25] MEDS: Heparin VIAL(*) 5000 UNITS/ML VIAL (FIVE THOUSAND) SUBCUT SCH ×3 (05:39→22:20)
[2018-10-25] MEDS: FLUoxetine CAP* 20 MG PO SCH (08:44)
[2018-10-25] MEDS: Atenolol TAB* 25 MG PO SCH (08:44)
[2018-10-25] MEDS: Famotidine TAB* 20 MG PO SCH ×2 (08:45→22:09)
[2018-10-25] MEDS: amLODIPine TAB* 5 MG PO SCH (08:45)
[2018-10-25 09:37] LABS: ABS Basophils 0 10^3/ul (0-0.2); ABS Eosinophils 0.4 10^3/ul (0-0.6); ABS Lymphocytes 0.9 10^3/ul (1.0-4.8); ABS Monocytes 0.4 10^3/ul (0-0.8); ABS Neutrophils 3.7 10^3/ul (1.5-7.7); ABS Nucleated RBC 0 10^3/ul; Eosinophil % 7.3 %; Hematocrit 33 % (35-47); Hemoglobin 10.8 g/dl (12.0-16.0); Lymphocyte % 16.5 %; Mean Corpuscular HGB Conc 33 g/dl (31-36); Mean Corpuscular Hemoglobin 30 pg (27-31); Mean Corpuscular Volume 90 fL (80-97); Mean Platelet Volume 8.1 fL (7.4-10.4); Nucleated Red Blood Cells % 0; Platelet Count 199 10^3/ul (150-450); Red Blood Count 3.66 10^6/ul (4.00-5.40); Red Cell Distribution Width 13 % (10.5-15); White Blood Count 5.3 10^3/ul (3.5-10.8)
--- NOTE | 2018-10-25 09:42 | PN ---
Progress Note - Progress Note Date of Service: 10/25/18 SOAP: Subjective: Pt seen and examined. Feeling well. pos flatus, pos loose BM Objective: Temp Pulse Resp BP Pulse Ox 98.5 F 69 20 100/61 97 10/24/18 15:38 10/24/18 15:38 10/24/18 19:58 10/24/18 15:38 10/24/18 15:38 Intake & Output 10/24/18 10/25/18 10/25/18 22:59 06:59 14:59 Intake Total 480 1095 Output Total 995 1200 230 Balance -515 -105 -230 a and o x3, nad lungs clear b/l abdo: soft/ ND/NT dressing intact, TARIQ serosang ext wnl labs P Assessment: POD3 reversal colostomy, hernia repair Plan: labs OOB possible d/c tomorrow
[2018-10-25 09:55] LABS: BUN/Creatinine Ratio 13.1 (8-20); Calcium 8.5 mg/dL (8.6-10.3); EGFR African American 115.4 (>60); EGFR Non-African American 95.4 (>60); Magnesium 1.7 mg/dL (1.9-2.7); Potassium 3.3 mmol/L (3.5-5.0)
[2018-10-25] MEDS ORDERED: Magnesium Sulfate 1 GM IV* 1 GM/100 ML BAG IV ONE (12:00)
[2018-10-25] MEDS: KCL 20 MEQ/100 ML IVPREMIX* 20 MEQ/100 ML BAG IV SCH ×2 (12:14→15:38)
[2018-10-26] MEDS: Heparin VIAL(*) 5000 UNITS/ML VIAL (FIVE THOUSAND) SUBCUT SCH (06:36)
[2018-10-26 08:12] VITALS: BP 104/52
[2018-10-26] MEDS: FLUoxetine CAP* 20 MG PO SCH (08:47)
[2018-10-26] MEDS: amLODIPine TAB* 5 MG PO SCH (08:48)
[2018-10-26] MEDS: Atenolol TAB* 25 MG PO SCH (08:48)
[2018-10-26] MEDS: Famotidine TAB* 20 MG PO SCH (08:49)
[2018-10-26] MEDS ORDERED: Bacitracin OINTMENT* 0.5% 0.5 oz TUBE TOPICAL ONE (09:49)
--- NOTE | 2018-10-26 12:12 | DS ---
CC: Dr. Mina Guzman; [facility] * DISCHARGE SUMMARY: DATE OF ADMISSION: 10/22/18 DATE OF DISCHARGE: 10/26/18 HOSPITAL COURSE: Ms. Cottrell is a 78-year-old female, worked up as an outpatient for a reversal of Jose Roberto's procedure done urgently last year for perforated diverticulitis. 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 Please see operative report for details. In the postoperative period, the patient was transferred to the PACU and then onto the short-stay surgical unit where she did well and her Raza catheter was removed on postoperative day 1. She was maintained on ice chips and sips of clears. Diet was advanced as appropriate when she started to pass flatus. She did undergo electrolyte rebalancing and was maintained on vacuum dressing. By postoperative day 4, the patient was ready to go home, passing small stools and flatus, denying any nausea and tolerating diet. PHYSICAL EXAMINATION: Physical exam was performed on day of discharge. The patient was afebrile. Vital signs were stable. Alert and oriented x3, in no apparent distress. Head, Eyes, Ears, Nose, and Throat: Normocephalic, atraumatic. Sclerae anicteric. Mucous membranes are moist. Neck: No lymphadenopathy. Lungs: Clear to auscultation bilaterally. Abdomen: Soft, nondistended, incisional tenderness. Dressing removed. Mild violaceous skin edges at the midportion of the midline wound. Stryker intact with no erythema. Colostomy site closed without erythema. TARIQ drain with serous fluid removed at bedside and dressing applied. Rectal exam not performed. Extremities: Within normal limits with no pitting edema. PLAN: On postoperative day 4 of above procedure, plan to discharge home, follow up as an outpatient. The patient is aware that she will place dressings over the wound until her appointment on . She is to contact our offices if she has any fever, nausea, vomiting or worsening pain. She will go home and restart all her home medications. She could take ibuprofen for pain. This was reviewed with her and discharge instruction sheet will be given to her by the nursing staff as well. [id number]/[id number] #: [id number] [facility]
== END 2018-10-26 11:15 | disposition home or self-care (01) | DRG 331 ==
LOC: AA 05:55 → SSU 16:06
PROVIDERS: ADMIT Surgery; ATTEND Surgery
PROC: 0DBN0ZZ Excision of Sigmoid Colon, Open Approach (ICD-10-PCS; principal; 2018-10-22 07:30)
PROC: 0WUF0JZ Supplement Abdominal Wall with Synthetic Substitute, Open Approach (ICD-10-PCS; 2018-10-22 07:30)
DX: K43.2 Incisional hernia without obstruction or gangrene (principal); M81.0 Age-related osteoporosis without current pathological fracture; I10 Essential (primary) hypertension; E78.5 Hyperlipidemia, unspecified; Z95.2 Presence of prosthetic heart valve; Z88.8 Allergy status to other drugs, medicaments and biological substances; Z83.3 Family history of diabetes mellitus; Z82.49 Family history of ischemic heart disease and other diseases of the circulatory system; Z80.9 Family history of malignant neoplasm, unspecified; Z87.891 Personal history of nicotine dependence; Z43.3 Encounter for attention to colostomy
CPT/HCPCS: 36415; 80048; 83735; 84100; 85025; 88302; 88304; A9270-GY; C1776; C1781; J1100; J1170; J1240; J1335; J1610; J1644; J1885; J2270; J2405; J2704; J2765; J3010; J3475; J3480; J3490